=== PATIENT | female | born 1950 | race Caucasian/White ===

== ENCOUNTER → 2020-06-10 12:38 | Outpatient (CLI) | payer MEDICARE, SELFPAY ==
--- NOTE | 2020-06-10 13:01 | XR_ITS ---
PROCEDURE: XR WRIST LT MIN 3V CLINICAL INDICATION: LT WRIST PAIN COMPARISON: No exams were available for comparison FINDINGS: No fracture or dislocation. No lytic or blastic change. There is normal mineralization. The joint spaces are well-preserved. No significant degenerative/arthritic changes. No erosive changes evident. Other findings:None. IMPRESSION: No acute findings. Dictated by: Obed Croft MD 06/10/2020 13:35 Obed Croft MD in [place] 06/10/2020 13:35
[2020-06-10 13:32] LABS: Basophils # 0.1 K/mm3 (0-0.2); Basophils % 1.2 % (0.1-2.0); Eosinophils # 0.1 K/mm3 (0.0-0.4); Eosinophils % 1.6 % (0.1-12.0); Hemoglobin 15.2 g/dL (12.2-16.2); Lymphocytes # 2.1 K/mm3 (0.7-4.5); Lymphocytes % 32.5 % (10-50); Mean Corpuscular HGB Conc 32.2 g/dL (31.8-35.4); Mean Corpuscular Hemoglobin 29.2 pg (27.0-31.2); Mean Corpuscular Volume 90.5 fl (81-99); Mean Platelet Volume 7.4 fl (7.4-10.4); Monocytes # 0.3 K/mm3 (0.1-1.0); Monocytes % 5.1 % (1.7-9.3); Neutrophils # 3.8 K/mm3 (1.8-7.8); Neutrophils % 59.6 % (37.0-80.0); Platelet Count 345 K/mm3 (142-424); Red Cell Distribution Width 14.2 % (11.5-17.5); White Blood Count 6.4 K/mm3 (4.8-10.8)
[2020-06-10 16:03] LABS: Alanine Aminotransferase 20 U/L (12-78); Albumin Level 4.1 g/dl (3.5-5.0); Albumin/Globulin Ratio 1.3 (1.1-1.8); Alkaline Phosphatase 122 U/L (38-126); Anion Gap 12.4 mEq/L (5-15); Aspartate Amino Transferase 28 U/L (14-36); Bilirubin,Total 0.4 mg/dl (0.2-1.3); Blood Urea Nitrogen 18 mg/dl (7-17); Calcium 9.1 mg/dl (8.4-10.2); Carbon Dioxide 26 mmol/L (22.0-30.0); Chloride 106 mmol/L (98-107); Chol/HDL Ratio 4.1 (1-3.5); Cholesterol 224 mg/dl (140-200); Estimated Glomerular Filt Rate 71 ml/min (>60); GFR (African American) 86 ML/MIN (>60); Globulin 3.1 g/dL (1.3-3.2); Glucose 74 mg/dl (74-100); HDL Cholesterol 55 mg/dl (40-60); Potassium 4.4 mmoL/L (3.5-5.1); Sodium 140 mmol/L (136-145); Total Protein,Serum 7.2 g/dl (6.3-8.2); Triglycerides 197 mg/dl (30-150); VLDL Cholesterol 39 mg/dL (0-40)
[2020-06-10 16:14] LABS: Direct LDL Cholesterol 118.18 mg/dL (100-129)
== END ==
PROVIDERS: Visit Provider Internal Medicine Adolescent Medicine
DX: Z00.00 Encounter for general adult medical examination without abnormal findings (principal); M25.532 Pain in left wrist; M12.9 Arthropathy, unspecified; Z86.39 Personal history of other endocrine, nutritional and metabolic disease; E78.00 Pure hypercholesterolemia, unspecified
CPT/HCPCS: 36415; 73110; 80053; 80061; 83036; 85025

== ENCOUNTER → 2020-07-07 15:27 | Outpatient (CLI) | payer MEDICARE, SELFPAY ==
--- NOTE | 2020-07-07 15:30 | MM_ITS ---
PROCEDURE: MM DIG SCREENING MAMM BI W/CAD Digital Breast Tomosynthesis Included CLINICAL INDICATION: SCREENING There is no personal or family history of breast cancer. COMPARISON: MG MM SCREENING MAMMOGRAM from 04/10/2016 TECHNIQUE: Standard CC and MLO images and 3D Tomosynthesis was obtained. R2 CAD reviewed. FINDINGS: Moderate scattered fibroglandular densities are seen throughout both breasts. There are mole markers on each breast. There is a stable benign-appearing nodular density in each breast. There is a benign-appearing microcalcification left breast. There is no suspicious lesion and no suspicious microcalcifications. IMPRESSION: Moderate breast density with no suspicious lesions seen BI-RAD Category: 2 Benign Finding(s) FOLLOW-UP: 1YR 1 Year Follow-up (A letter has been sent to the patient regarding results of the study.) Dictated by: Dr. Viktor Russo MD 07/30/2020 17:03 Dr. Viktor Russo MD in [place] 07/30/2020 17:03
== END ==
PROVIDERS: PCP Internal Medicine Adolescent Medicine; Visit Provider Internal Medicine Adolescent Medicine
DX: Z12.31 Encounter for screening mammogram for malignant neoplasm of breast (principal)
CPT/HCPCS: 77063; 77067

== ENCOUNTER → 2020-08-09 10:56 | Outpatient (CLI) | payer MEDICARE, SELFPAY ==
[2020-08-09 13:05] LABS: 25-OH Vitamin D, Total 20.6 ng/mL (30-100); Free Thyroxine Index 2.2 ug/dL (5.93-13.13); T4 (Thyroxine) 6.6 ug/dl (5.53-11.0); Triiodothryronine (T3) Uptake 33 % (23.5-40.5)
[2020-08-09 13:18] LABS: Thyroid Stimulating Hormone 3.83 uIU/mL (0.465-4.68)
[2020-08-09 13:39] LABS: Vitamin B12 338 pg/mL (239-931)
== END ==
PROVIDERS: Visit Provider Internal Medicine Adolescent Medicine
DX: G25.81 Restless legs syndrome (principal); E55.9 Vitamin D deficiency, unspecified; Z86.39 Personal history of other endocrine, nutritional and metabolic disease
CPT/HCPCS: 36415; 82306; 82607; 82728; 83735; 84436; 84443; 84479

== ENCOUNTER 2020-09-13 12:50 | Outpatient (CLI) | payer MEDICARE, SELFPAY ==
[2020-09-13 13:08] VITALS: BP 154/88; PULSE 70; RESP 18; TEMP 36.7; O2SAT 99
[2020-09-13 14:05] VITALS: BP 140/85; PULSE 72; RESP 18; O2SAT 99
== END 2020-09-13 14:05 | disposition home or self-care (01) ==
LOC: INF 12:54
PROVIDERS: PCP Internal Medicine Adolescent Medicine; Visit Provider Nurse Practitioner Family
DX: N39.0 Urinary tract infection, site not specified (principal)
CPT/HCPCS: 96365; J1335

== ENCOUNTER 2020-09-14 12:55 | Outpatient (CLI) | payer MEDICARE, SELFPAY ==
[2020-09-14 13:15] VITALS: BP 125/70; PULSE 73; RESP 18; TEMP 36.6; O2SAT 99
[2020-09-14 13:50] VITALS: BP 128/74; PULSE 71; RESP 18; TEMP 36.6; O2SAT 99
== END 2020-09-14 13:55 | disposition home or self-care (01) ==
LOC: INF 12:55
PROVIDERS: Visit Provider Nurse Practitioner Family
DX: N39.0 Urinary tract infection, site not specified (principal)
CPT/HCPCS: 96365; J1335

== ENCOUNTER 2020-09-15 13:06 | Outpatient (CLI) | payer MEDICARE, SELFPAY ==
[2020-09-15 13:16] VITALS: BP 143/89; PULSE 77; RESP 18; TEMP 36.4; O2SAT 96
[2020-09-15 13:46] VITALS: BP 141/81; PULSE 72; RESP 18; O2SAT 97
[2020-09-15 14:16] VITALS: BP 132/71; PULSE 80; RESP 18; O2SAT 97
== END 2020-09-15 14:20 | disposition home or self-care (01) ==
LOC: INF 13:06
PROVIDERS: Visit Provider Nurse Practitioner Family
DX: N39.0 Urinary tract infection, site not specified (principal)
CPT/HCPCS: 96365; J1335

== ENCOUNTER 2020-09-16 12:55 | Outpatient (CLI) | payer MEDICARE, SELFPAY ==
[2020-09-16 13:35] VITALS: BP 137/79; PULSE 80; RESP 18; TEMP 36.3; O2SAT 94
[2020-09-16 14:20] VITALS: BP 127/71; PULSE 69; RESP 16
== END 2020-09-16 14:35 | disposition home or self-care (01) ==
LOC: INF 13:01
PROVIDERS: Visit Provider Nurse Practitioner Family
DX: N39.0 Urinary tract infection, site not specified (principal)
CPT/HCPCS: 96365; J1335

== ENCOUNTER 2020-09-17 12:55 | Outpatient (CLI) | payer MEDICARE, SELFPAY ==
[2020-09-17 13:05] VITALS: BP 128/82; PULSE 84; RESP 18; TEMP 36.5; O2SAT 97
[2020-09-17 13:45] VITALS: BP 130/78; PULSE 78; RESP 18; TEMP 36.6; O2SAT 98
== END 2020-09-17 13:45 | disposition home or self-care (01) ==
LOC: INF 12:55
PROVIDERS: Visit Provider Nurse Practitioner Family
DX: N39.0 Urinary tract infection, site not specified (principal)
CPT/HCPCS: 96365; J1335

== ENCOUNTER → 2020-09-18 12:59 | Outpatient (CLI) | payer MEDICARE, SELFPAY ==
[2020-09-18 13:22] VITALS: BP 121/67; PULSE 73; RESP 16; TEMP 36.1; O2SAT 97
[2020-09-18 14:30] VITALS: BP 120/66; PULSE 78; RESP 16; TEMP 36.9; O2SAT 98
[2020-09-18 14:50] VITALS: BP 119/65; PULSE 76; RESP 16; TEMP 36.8; O2SAT 98
[2020-09-18 14:55] VITALS: BP 119/65; PULSE 76; RESP 16; TEMP 36.8; O2SAT 98
== END ==
PROVIDERS: PCP Internal Medicine Adolescent Medicine; Visit Provider Nurse Practitioner Family
DX: N39.0 Urinary tract infection, site not specified (principal)
CPT/HCPCS: 96365; J1335

== ENCOUNTER → 2020-09-19 12:54 | Outpatient (CLI) | payer MEDICARE, SELFPAY ==
[2020-09-19 12:54] VITALS: BP 124/83; PULSE 78; RESP 16; TEMP 36.1; O2SAT 98
[2020-09-19 14:28] VITALS: BP 128/82; PULSE 77; RESP 18; TEMP 36.3; O2SAT 98
== END ==
PROVIDERS: PCP Nurse Practitioner Family; Visit Provider Nurse Practitioner Family
DX: N39.0 Urinary tract infection, site not specified (principal)
CPT/HCPCS: 96365

== ENCOUNTER → 2021-06-01 11:41 | Outpatient (CLI) | payer MEDICARE, SELFPAY ==
[2021-06-01 12:37] LABS: Basophils # 0.1 K/mm3 (0-0.2); Eosinophils # 0.1 K/mm3 (0.0-0.4); Eosinophils % 1.8 % (0.1-12.0); Hematocrit 45.1 % (37.0-47.0); Hemoglobin 15.1 g/dL (12.2-16.2); Lymphocytes # 2.6 K/mm3 (0.7-4.5); Lymphocytes % 40.3 % (10-50); Mean Corpuscular HGB Conc 33.5 g/dL (31.8-35.4); Mean Corpuscular Hemoglobin 29.3 pg (27.0-31.2); Mean Corpuscular Volume 87.5 fl (81-99); Mean Platelet Volume 7.9 fl (7.4-10.4); Monocytes # 0.3 K/mm3 (0.1-1.0); Monocytes % 4.2 % (1.7-9.3); Neutrophils # 3.3 K/mm3 (1.8-7.8); Neutrophils % 51.7 % (37.0-80.0); Platelet Count 326 K/mm3 (142-424); Red Blood Count 5.15 M/mm3 (4.20-5.40); Red Cell Distribution Width 14.6 % (11.5-17.5); White Blood Count 6.5 K/mm3 (4.8-10.8)
[2021-06-01 13:21] LABS: Hemoglobin A1C 4.9 % (4.0-6.0)
[2021-06-01 14:00] LABS: 25-OH Vitamin D, Total 21.6 ng/mL (30-100)
[2021-06-01 15:21] LABS: Alanine Aminotransferase 23 U/L (12-78); Albumin Level 3.9 g/dl (3.5-5.0); Albumin/Globulin Ratio 1.4 (1.1-1.8); Alkaline Phosphatase 95 U/L (38-126); Anion Gap 12.8 mEq/L (5-15); Aspartate Amino Transferase 29 U/L (14-36); Bilirubin,Total 0.4 mg/dl (0.2-1.3); Blood Urea Nitrogen 13 mg/dl (7-17); Calcium 8.8 mg/dl (8.4-10.2); Carbon Dioxide 18 mmol/L (22.0-30.0); Chloride 114 mmol/L (98-107); Estimated Glomerular Filt Rate 71 ml/min (>60); GFR (African American) 86 ML/MIN (>60); Globulin 2.8 g/dL (1.3-3.2); Glucose 115 mg/dl (74-100); Potassium 3.8 mmoL/L (3.5-5.1); Sodium 141 mmol/L (136-145); Total Protein,Serum 6.7 g/dl (6.3-8.2)
[2021-06-01 15:52] LABS: Thyroid Stimulating Hormone 2.33 uIU/mL (0.465-4.68)
[2021-06-01 16:10] LABS: Vitamin B12 302 pg/mL (239-931)
== END ==
PROVIDERS: Visit Provider Internal Medicine Adolescent Medicine
DX: R53.81 Other malaise (principal); R53.83 Other fatigue; E55.9 Vitamin D deficiency, unspecified; Z86.39 Personal history of other endocrine, nutritional and metabolic disease
CPT/HCPCS: 36415; 80053; 82306; 82607; 83036; 84443; 85025

== ENCOUNTER 2021-07-14 15:17 | Emergency (ER) | payer MEDICARE, SELFPAY ==
[2021-07-14] VITALS (9 sets, daily range): BP systolic 112–161; BP diastolic 70–97; PULSE 68–79; RESP 13–18; TEMP 36.7–36.8; O2SAT 96–99; BMI 34.0
--- NOTE | 2021-07-14 15:17 | ECG_ITS ---
APPROVED REPORT Exam: Resting ECG HR:79 bpm ECG Measurements Heart Rate 79 AXES MN 126 P -17 QRSd 78 QRS -34 QT 390 T 71 QTc 447 Conclusion Normal sinus rhythm Left axis deviation Low voltage QRS Abnormal ECG Electronically signed by : Johnny Gomez MD 07/15/2021 12:36:25
--- NOTE | 2021-07-14 15:34 | XR_ITS ---
PROCEDURE INFORMATION: Exam: XR Chest Exam date and time: 07/14/2021 3:34 PM Age: 71 years old Clinical indication: Pain; Chest pressure; Additional info: Chest pain TECHNIQUE: Imaging protocol: XR of the chest. Views: 2 views. COMPARISON: No relevant prior studies available. FINDINGS: Lungs: No lobar consolidation, effusion or edema. Pleural spaces: Unremarkable. No pleural effusion. No pneumothorax. Heart/Mediastinum: Unremarkable. No cardiomegaly. Bones/joints: Unremarkable. IMPRESSION: No lobar consolidation, effusion or edema. Plain films are relatively insensitive for detecting any possible ground glass opacities.
[2021-07-14 15:51] LABS: Basophils # 0.1 K/mm3 (0-0.2); Basophils % 1.8 % (0.1-2.0); Eosinophils # 0.1 K/mm3 (0.0-0.4); Eosinophils % 1.8 % (0.1-12.0); Hematocrit 44.6 % (37.0-47.0); Hemoglobin 14.7 g/dL (12.2-16.2); Lymphocytes # 2.5 K/mm3 (0.7-4.5); Lymphocytes % 46.8 % (10-50); Mean Corpuscular Hemoglobin 29.5 pg (27.0-31.2); Mean Corpuscular Volume 89.4 fl (81-99); Mean Platelet Volume 8.4 fl (7.4-10.4); Monocytes # 0.3 K/mm3 (0.1-1.0); Monocytes % 4.7 % (1.7-9.3); Neutrophils # 2.4 K/mm3 (1.8-7.8); Neutrophils % 44.8 % (37.0-80.0); Platelet Count 297 K/mm3 (142-424); Red Blood Count 4.98 M/mm3 (4.20-5.40); Red Cell Distribution Width 14.3 % (11.5-17.5); White Blood Count 5.3 K/mm3 (4.8-10.8)
--- NOTE | 2021-07-14 15:56 | HMH.EDGENADL ---
ED Disposition Clinical Impression: Atypical chest pain Disposition: Home, Self-Care Condition on Discharge: Good Instructions: DI for Atypical Chest Pain Additional Instructions: Additional instructions for CHEST PAIN: See your physician as soon as possible for further evaluation. Return immediately if worsening chest pain, vomiting, shortness of breath, fever, coughing of blood. Referrals: Johnny Gomez MD [Primary Care Provider] - - Critical Care Critical Care Time: No Attestation: On 07/14/21, the high probability of a clinically significant, sudden or life threatening deterioration of the following system(s) required my full and direct attention, intervention and personal management. The time I documented below is in addition to time spent performing reported procedures but includes the following listed in this critical care notation. Medical Decision Making - Willem Inquiry Pt receiving controlled substance: No Vital Signs: 07/14/21 15:20 07/14/21 15:30 07/14/21 16:00 Temperature 98.1 F Temperature Source Oral Pulse Rate 79 74 Pulse Rate [Left Radial] 79 Respiratory Rate 18 17 16 Blood Pressure 136/85 137/85 Blood Pressure [Right Arm] 143/93 H Blood Pressure Mean 102 99 Blood Pressure Mean [Right Arm] 109 Blood Pressure Source [Right Arm] Automatic Cuff Blood Pressure Position [Right Arm] Sitting 02 Sat by Pulse Oximetry 98 97 97 Oxygen Delivery Method Room Air 07/14/21 16:30 07/14/21 17:00 07/14/21 17:30 Temperature Temperature Source Pulse Rate 69 72 68 Pulse Rate [Left Radial] Respiratory Rate 13 14 16 Blood Pressure 154/96 H 151/96 H 161/97 H Blood Pressure [Right Arm] Blood Pressure Mean 113 108 115 Blood Pressure Mean [Right Arm] Blood Pressure Source [Right Arm] Blood Pressure Position [Right Arm] 02 Sat by Pulse Oximetry 97 96 96 Oxygen Delivery Method 07/14/21 18:00 07/14/21 18:30 Temperature Temperature Source Pulse Rate 71 70 Pulse Rate [Left Radial] Respiratory Rate 15 13 Blood Pressure 149/93 H 151/90 H Blood Pressure [Right Arm] Blood Pressure Mean 111 110 Blood Pressure Mean [Right Arm] Blood Pressure Source [Right Arm] Blood Pressure Position [Right Arm] 02 Sat by Pulse Oximetry 97 96 Oxygen Delivery Method - Lab Data Lab Results 07/14/21 15:25: WBC 5.3, RBC 4.98, Hgb 14.7, Hct 44.6, MCV 89.4, MCH 29.5, MCHC 33.0, RDW 14.3, Plt Count 297, MPV 8.4, Neut % (Auto) 44.8, Lymph % (Auto) 46.8, Lucas % (Auto) 4.7, Eos % (Auto) 1.8, Baso % (Auto) 1.8, Neut # (Auto) 2.4, Lymph # (Auto) 2.5, Lucas # (Auto) 0.3, Eos # (Auto) 0.1, Baso # (Auto) 0.1 07/14/21 15:25: Sodium 137, Potassium 3.6, Chloride 105, Carbon Dioxide 27, Anion Gap 8.6, BUN 14, Creatinine 0.80, Estimated Creat Clear 87, Estimated GFR 71, Est GFR ( Amer) 86, Glucose 88, Calcium 8.7, Troponin I < 0.01 07/14/21 18:40: Troponin I < 0.01 Result diagrams: 07/14/21 15:25 07/14/21 15:25 Orders (Tests/Meds): ED MEDICATIONS Discontinued Medications Generic Name Dose Route Start Last Admin Trade Name Freq PRN Reason Stop Dose Admin Aspirin 324 mg 07/14/21 15:34 07/14/21 15:38 Aspirin 81mg Chewable Tablet PO 07/14/21 15:35 324 mg ONCE ONE Administration ORDERS Category Date Time Status Troponin I Q3H Lab 07/14/21 21:45 Ordered - Radiology Data #1 Image(s): Chest Image Reviewed: Yes I have reviewed radiologist's interpretation PROCEDURE INFORMATION: Exam: XR Chest Exam date and time: 07/14/2021 3:34 PM Age: 71 years old Clinical indication: Pain; Chest pressure; Additional info: Chest pain TECHNIQUE: Imaging protocol: XR of the chest. Views: 2 views. COMPARISON: No relevant prior studies available. FINDINGS: Lungs: No lobar consolidation, effusion or edema. Pleural spaces: Unremarkable. No pleural effusion. No pneumothorax. Heart/Mediastinum: Unremarkable. No cardiomegaly.
[2021-07-14 16:26] LABS: Anion Gap 8.6 mEq/L (5-15); Blood Urea Nitrogen 14 mg/dl (7-17); Calcium 8.7 mg/dl (8.4-10.2); Carbon Dioxide 27 mmol/L (22.0-30.0); Chloride 105 mmol/L (98-107); Creatinine Clearance Estimated 87 mL/min (50-200); Estimated Glomerular Filt Rate 71 ml/min (>60); GFR (African American) 86 ML/MIN (>60); Glucose 88 mg/dl (74-100); Potassium 3.6 mmoL/L (3.5-5.1); Sodium 137 mmol/L (136-145)
--- NOTE | 2021-07-14 16:34 | PC.NURSE ---
updated family about pt status
[2021-07-14 16:44] LABS: Troponin I < 0.01 ng/ml (0.00-0.034)
[2021-07-14 19:30] LABS: Troponin I < 0.01 ng/ml (0.00-0.034)
== END 2021-07-14 19:54 | disposition home or self-care (01) ==
PROVIDERS: Emergency Provider Emergency Medicine; PCP Internal Medicine Adolescent Medicine
DX: R07.89 Other chest pain (principal); E11.9 Type 2 diabetes mellitus without complications; I10 Essential (primary) hypertension; Z88.0 Allergy status to penicillin; Z88.2 Allergy status to sulfonamides; E78.5 Hyperlipidemia, unspecified
CPT/HCPCS: 71046; 80048; 84484; 85025; 93005; 99283

== ENCOUNTER → 2021-07-26 15:47 | Outpatient (CLI) | payer MEDICARE, SELFPAY | PROVIDERS: PCP Radiology Diagnostic Radiology; Visit Provider Nurse Practitioner | DX: Z20.822 Contact with and (suspected) exposure to COVID-19 (principal) | CPT/HCPCS: C9803; U0003; U0005 ==

== ENCOUNTER → 2021-07-27 15:38 | Outpatient (CLI) | payer MEDICARE, SELFPAY ==
--- NOTE | 2021-07-27 | US_ITS ---
PROCEDURE INFORMATION: Exam: US Right Breast, Complete MG Bilateral Diagnostic Breast Tomosynthesis Exam date and time: 07/27/2021 3:43 PM Age: 71 years old Clinical indication: Palpable abnormality right breast TECHNIQUE: Imaging protocol: Complete ultrasound of all four quadrants of the Right breast and the retroareolar regions, including ultrasound of the axilla when performed. Bilateral Diagnostic tomosynthesis and 2D mammography including computer-aided detection (CAD) when performed. Unilateral or bilateral exam. COMPARISON: 1. MG MM DIG SCREENING MAMM BI W/CAD 07/07/2020 3:36 PM 2. MG MM SCREENING MAMMOGRAM 04/10/2016 10:12 AM FINDINGS: MAMMOGRAPHY: The breast tissue is composed of scattered areas of fibroglandular density. A skin marker was placed over the palpable abnormality in the right 12 o'clock axis. Routine and spot compression views demonstrate a stellate mass measuring 3.5 x 3.4 cm in dimension. There is associated architectural distortion present. No suspicious microcalcifications. No suspicious findings in the left breast. architectural distortion or suspicious microcalcifications in either breast to suggest malignancy. No skin thickening . There is a 1 lymph node in the right axilla that is round in shape measuring 1.1 cm without a clear fatty hilum identified. ULTRASOUND: Sonographic images of the right breast including the retroareolar region, all 4 quadrants and the axilla demonstrates a stellate hypoechoic solid mass corresponding to the palpable mass on mammography. It is located in the middle third of the right 12 o'clock axis and is slightly under measured on sonography. On sonography it measures 2.4 x 2.0 by 2.3 cm in dimension. No other solid or cystic masses are noted in the right breast. Evaluation the right axilla demonstrates several fat containing benign-appearing axillary lymph nodes. IMPRESSION: Palpable abnormality in the right breast corresponds to a stellate mass highly suggestive of primary breast malignancy. Ultrasound-guided core biopsy is recommended for further evaluation. Repeat sonography of the right axilla is also recommended at the time of biopsy to assess for any potential adenopathy. ASSESSMENT: BI-RADS Category 5: Highly suggestive of malignancy
== END ==
PROVIDERS: PCP Internal Medicine Adolescent Medicine; Visit Provider Internal Medicine Adolescent Medicine
DX: R92.8 Other abnormal and inconclusive findings on diagnostic imaging of breast (principal); N63.10 Unspecified lump in the right breast, unspecified quadrant
CPT/HCPCS: 76641; 77062; 77066; G0279

== ENCOUNTER → 2021-08-09 09:13 | Outpatient (CLI) | payer MEDICARE, SELFPAY ==
--- NOTE | 2021-08-09 | MM_ITS ---
FINAL REPORT CLINICAL HISTORY: . s/p bx, clip placement FINDINGS: MAMMOGRAM RIGHT History: Right breast biopsy. Right breast mass. TECHNIQUE: Standard digital 2-D views with 3-D tomosynthesis COMPARISON: 07-27-21 DENSITY: There are scattered areas of fibroglandular density FINDINGS: Dominant mass is again noted in the right breast at approximately 11-12:00. There has been interval biopsy of the mass with a biopsy marker clip noted within the central portion of the mass reflecting adequate sampling. No new abnormalities seen. There is no significant hemorrhage. IMPRESSION: Post biopsy mammogram performed documenting biopsy clip within the central portion of the mass RECOMMENDATION: Pending histopathology results Authenticated by Naveed Caballero MD on 08/11/2021 02:26:01 PM [facility]
--- NOTE | 2021-08-09 09:31 | US_ITS ---
FINAL REPORT CLINICAL HISTORY: RT BREAST MASS. Request for right breast biopsy and right x-ray lymph node sampling. FINDINGS: ULTRASOUND-GUIDED RIGHT BREAST MASS BIOPSY TECHNIQUE: Limited images were obtained to localize region of interest. The upper outer quadrant was prepped in a routine sterile fashion and locally anesthetized with 1% lidocaine. The needle was positioned within the outer periphery of the lesion. A total of 4 passes were made with a 14 gauge core biopsy needle. Biopsy marker clip was deployed within the lesion. Mammogram was obtained the dictated under separate report. Procedure was well tolerated . CONCLUSION: 1. Technically successful ultrasound guided core biopsy of right breast mass as above. 2. Biopsy marker clip deployed within lesion 3. Post biopsy mammogram obtained dictated under separate report 4. FNA of right axillary lymph nodes performed dictated under separate report ULTRASOUND-GUIDED RIGHT AXILLARY LYMPH NODE BIOPSY/FNA TECHNIQUE: Limited images were obtained to localize region of interest. No enlarged lymph nodes were identified. The largest lymph node was targeted for FNA. Lymph node was not amenable to core biopsy. The lymph node measured 10 x 5 mm. The was prepped in a routine sterile fashion and locally anesthetized with 1% lidocaine. The needle was positioned within the outer periphery of the lesion. A total of 3 passes were made with a 25 gauge core biopsy needle. Procedure was well tolerated . CONCLUSION: 1. Technically successful ultrasound guided FNA of right axillary lymph node as above. Authenticated by Naveed Caballero MD on 08/11/2021 02:21:10 PM [facility]
== END ==
PROVIDERS: PCP Internal Medicine Adolescent Medicine; Visit Provider Surgery
DX: R92.8 Other abnormal and inconclusive findings on diagnostic imaging of breast (principal); N63.10 Unspecified lump in the right breast, unspecified quadrant
CPT/HCPCS: 10005; 19083; 77065; 88173; 88305; 88360

== ENCOUNTER → 2021-09-12 13:48 | Outpatient (CLI) | payer MEDICARE, SELFPAY ==
--- NOTE | 2021-09-12 | CA_ITS ---
APPROVED REPORT EXAM: Comprehensive 2D, Doppler, and color-flow Echocardiogram City Comptroller: Beatrice Garcia CRT Ht: 5 ft 9 in Wt: 230lbs BSA: 2.19 BP: 142/86 mmHg Indications: PRE-CHEMO, BREAST CA, TDE POOR U/S WINDOWS 2D Dimensions LVOT 2.28 cm (M/F) 1.5-2.5 LA Volume 25.50 mL LA Volume Index 11.60 mL/m2 (M/F) 16-34 M-Mode Dimensions LA Diam 2.65 cm (1.9-4.0) Ao Diam 4.39 cm (2.0-3.7) TAPSE 2.33 (<1.7) LV Diastology E Decel Time 110.00 (160-240 msec) E/A Ratio 0.52 MED E' 6.50 (< 7 cm/sec) MED A' 9.40 cm/s E'/MED E' Ratio 7.17 (>14) LAT E' 4.90 (<10 cm/sec) LAT A' 9.70 cm/s E/LAT E' Ratio 9.51 (>14) Aortic Valve AO Peak GR. 5.60 mmHg Mitral Valve MV A Velocity 89.00 (40-130 cm/s) E/A Ratio 0.52 MV Decel. Time 110.00 (160-240 ms) Tricuspid Valve TR P. Velocity 153.00 cm/s Left Ventricle Left atrium is mildly enlarged, left ventricle is normal size, mild concentric left ventricular hypertrophy, visually estimated ejection fraction 55% with no obvious regional wall motion abnormality, diastolic parameters are within normal range. Right Ventricle Right atrium and right ventricle are normal size and contractility. Aortic Valve Aortic valve is minimally thickened and fibrosed, there is no aortic stenosis or aortic insufficiency. Mitral Valve Mitral valve is grossly normal, there is trace mitral regurgitation. Tricuspid Valve Tricuspid valve grossly normal, there is trace tricuspid regurgitation, tricuspid regurgitation jet velocity is inadequate for calculation of the right ventricular systolic pressure. Pulmonic Valve Pulmonic valve is poorly visualized. Great Vessels Aortic root is normal size. Inferior vena cava is normal size with normal inspiratory collapse. Pericardium No significant pericardial effusion noted. Conclusion 1. Mildly enlarged left atrium, normal left ventricular size, mild concentric left ventricular hypertrophy, visually estimated ejection fraction 55% with no obvious regional wall motion abnormality, grade 1 diastolic dysfunction seen without tissue Doppler evidence of raise left atrial pressure. 2. Trace mitral and tricuspid regurgitation. 3. No significant pericardial effusion noted. 4. Inferior vena cava is normal size with normal inspiratory collapse. Electronically signed by : Iván Nayak MD 09/12/2021 20:39:02
== END ==
PROVIDERS: PCP Internal Medicine Adolescent Medicine; Visit Provider Internal Medicine Medical Oncology
DX: C50.911 Malignant neoplasm of unspecified site of right female breast (principal); R07.89 Other chest pain
CPT/HCPCS: 93306

== ENCOUNTER 2021-09-15 09:01 | Outpatient (CLI) | payer MEDICARE, SELFPAY ==
[2021-09-15] VITALS (18 sets, daily range): BP systolic 120–156; BP diastolic 66–85; PULSE 67–86; RESP 18; O2SAT 96; BMI 34.0
[2021-09-15 09:40] LABS: Basophils # 0.1 K/mm3 (0-0.2); Basophils % 1.1 % (0.1-2.0); Eosinophils # 0.1 K/mm3 (0.0-0.4); Eosinophils % 2.4 % (0.1-12.0); Hematocrit 39.9 % (37.0-47.0); Hemoglobin 13.4 g/dL (12.2-16.2); Lymphocytes # 2.1 K/mm3 (0.7-4.5); Lymphocytes % 36.8 % (10-50); Mean Corpuscular HGB Conc 33.7 g/dL (31.8-35.4); Mean Corpuscular Hemoglobin 29.5 pg (27.0-31.2); Mean Corpuscular Volume 87.5 fl (81-99); Mean Platelet Volume 7.2 fl (7.4-10.4); Monocytes # 0.3 K/mm3 (0.1-1.0); Monocytes % 6.2 % (1.7-9.3); Neutrophils % 53.7 % (37.0-80.0); Platelet Count 266 K/mm3 (142-424); Red Blood Count 4.56 M/mm3 (4.20-5.40); Red Cell Distribution Width 14.2 % (11.5-17.5); White Blood Count 5.6 K/mm3 (4.8-10.8)
[2021-09-15 09:42] LABS: Chloride 107 mmol/L (98-107); Potassium 3.4 mmoL/L (3.5-5.1); Sodium 136 mmol/L (136-145)
[2021-09-15 09:44] LABS: Alanine Aminotransferase 26 U/L (12-78); Alkaline Phosphatase 126 U/L (38-126); Anion Gap 7.4 mEq/L (5-15); Aspartate Amino Transferase 40 U/L (14-36); Bilirubin,Total 0.5 mg/dl (0.2-1.3); Blood Urea Nitrogen 15 mg/dl (7-17); Carbon Dioxide 25 mmol/L (22.0-30.0); Creatinine Clearance Estimated 87 mL/min (50-200); Estimated Glomerular Filt Rate 83 ml/min (>60); GFR (African American) 100 ML/MIN (>60)
[2021-09-15 09:45] LABS: Albumin Level 3.5 g/dl (3.5-5.0); Albumin/Globulin Ratio 1.2 (1.1-1.8); Calcium 7.4 mg/dl (8.4-10.2); Glucose 107 mg/dl (74-100); Total Protein,Serum 6.5 g/dl (6.3-8.2)
[2021-09-15 10:15] LABS: Thyroid Stimulating Hormone 2.81 uIU/mL (0.465-4.68)
[2021-09-16 14:13] LABS: Adrenocorticotropic Hormone 16.9 pg/mL (7.2-63.3)
--- NOTE | 2021-09-21 10:46 | DIET.NUTRFU ---
Spoke to patient about chemo tx and how she is feeling. Just had 1 tx so far and still feeling good and eating good. She has desired weight loss, but discouraged against it at this time. She asked about different things she may experience, we talked about taste changes and nausea and some foods to keep on hand. She has bought some glucerna already just in case. Encouraged her to use in place of meal if cannot eat, she has hx of hypoglycemia and should not skip meals. provided contact information for any further questions or concerns
== END 2021-09-15 15:51 | disposition home or self-care (01) ==
LOC: INF 09:02
PROVIDERS: PCP Internal Medicine Adolescent Medicine; Visit Provider Internal Medicine Medical Oncology
DX: Z51.11 Encounter for antineoplastic chemotherapy (principal); C50.911 Malignant neoplasm of unspecified site of right female breast; Z79.899 Other long term (current) drug therapy
CPT/HCPCS: 80053; 82024; 82533; 84443; 85025; 96413; 96415; 96417; J1642; J2469; J7060; J8501; J9045; J9267; J9271

== ENCOUNTER 2021-09-22 07:51 | Outpatient (CLI) | payer MEDICARE, SELFPAY ==
[2021-09-22] VITALS (12 sets, daily range): BP systolic 127–141; BP diastolic 74–87; PULSE 77–87; RESP 18; TEMP 36.6; O2SAT 96; BMI 34.0
[2021-09-22 09:34] LABS: Basophils # 0.1 K/mm3 (0-0.2); Eosinophils # 0.2 K/mm3 (0.0-0.4); Eosinophils % 3.5 % (0.1-12.0); Hemoglobin 13.5 g/dL (12.2-16.2); Lymphocytes # 1.9 K/mm3 (0.7-4.5); Lymphocytes % 37.2 % (10-50); Mean Corpuscular HGB Conc 32.2 g/dL (31.8-35.4); Mean Corpuscular Hemoglobin 29.4 pg (27.0-31.2); Mean Corpuscular Volume 91.2 fl (81-99); Monocytes # 0.1 K/mm3 (0.1-1.0); Monocytes % 2.1 % (1.7-9.3); Neutrophils # 2.8 K/mm3 (1.8-7.8); Neutrophils % 55.3 % (37.0-80.0); Platelet Count 298 K/mm3 (142-424); Red Blood Count 4.61 M/mm3 (4.20-5.40); Red Cell Distribution Width 14.3 % (11.5-17.5); White Blood Count 5.1 K/mm3 (4.8-10.8)
[2021-09-22 09:39] LABS: Alanine Aminotransferase 30 U/L (12-78); Albumin Level 3.5 g/dl (3.5-5.0); Albumin/Globulin Ratio 1.3 (1.1-1.8); Alkaline Phosphatase 98 U/L (38-126); Anion Gap 6.9 mEq/L (5-15); Aspartate Amino Transferase 32 U/L (14-36); Bilirubin,Total 0.4 mg/dl (0.2-1.3); Blood Urea Nitrogen 14 mg/dl (7-17); Calcium 7.9 mg/dl (8.4-10.2); Carbon Dioxide 28 mmol/L (22.0-30.0); Chloride 106 mmol/L (98-107); Creatinine Clearance Estimated 87 mL/min (50-200); Estimated Glomerular Filt Rate 71 ml/min (>60); GFR (African American) 86 ML/MIN (>60); Globulin 2.8 g/dL (1.3-3.2); Glucose 98 mg/dl (74-100); Potassium 3.9 mmoL/L (3.5-5.1); Sodium 137 mmol/L (136-145); Total Protein,Serum 6.3 g/dl (6.3-8.2)
== END 2021-09-22 14:35 | disposition home or self-care (01) ==
LOC: INF 07:52
PROVIDERS: Visit Provider Internal Medicine Medical Oncology
DX: Z51.11 Encounter for antineoplastic chemotherapy (principal); C50.911 Malignant neoplasm of unspecified site of right female breast
CPT/HCPCS: 80053; 85025; 96413; 96415; J2405; J7060; J9267

== ENCOUNTER 2021-09-29 08:08 | Outpatient (CLI) | payer MEDICARE, SELFPAY ==
[2021-09-29] VITALS (13 sets, daily range): BP systolic 105–128; BP diastolic 64–74; PULSE 74–87; RESP 16; TEMP 35.9; O2SAT 97; BMI 34.0
[2021-09-29 09:27] LABS: Basophils % 1.3 % (0.1-2.0); Chloride 109 mmol/L (98-107); Eosinophils # 0.1 K/mm3 (0.0-0.4); Eosinophils % 3.7 % (0.1-12.0); Hematocrit 38.4 % (37.0-47.0); Hemoglobin 12.6 g/dL (12.2-16.2); Lymphocytes # 1.9 K/mm3 (0.7-4.5); Lymphocytes % 58.1 % (10-50); Mean Corpuscular HGB Conc 32.9 g/dL (31.8-35.4); Mean Corpuscular Hemoglobin 29.5 pg (27.0-31.2); Mean Corpuscular Volume 89.6 fl (81-99); Mean Platelet Volume 7.9 fl (7.4-10.4); Monocytes # 0.1 K/mm3 (0.1-1.0); Monocytes % 3.5 % (1.7-9.3); Neutrophils # 1.1 K/mm3 (1.8-7.8); Neutrophils % 33.4 % (37.0-80.0); Platelet Count 302 K/mm3 (142-424); Potassium 3.7 mmoL/L (3.5-5.1); Red Blood Count 4.28 M/mm3 (4.20-5.40); Red Cell Distribution Width 14.5 % (11.5-17.5); Sodium 136 mmol/L (136-145); White Blood Count 3.3 K/mm3 (4.8-10.8)
[2021-09-29 09:29] LABS: Blood Urea Nitrogen 17 mg/dl (7-17); Creatinine Clearance Estimated 87 mL/min (50-200); Estimated Glomerular Filt Rate 62 ml/min (>60); GFR (African American) 75 ML/MIN (>60); MANUAL DIFFERENTIAL MANUAL DIFFERENTIAL (MANUAL DIFF)
[2021-09-29 09:30] LABS: Alanine Aminotransferase 44 U/L (12-78); Albumin Level 3.4 g/dl (3.5-5.0); Albumin/Globulin Ratio 1.2 (1.1-1.8); Alkaline Phosphatase 109 U/L (38-126); Anion Gap 9.7 mEq/L (5-15); Aspartate Amino Transferase 32 U/L (14-36); Bilirubin,Total 0.5 mg/dl (0.2-1.3); Calcium 7.7 mg/dl (8.4-10.2); Carbon Dioxide 21 mmol/L (22.0-30.0); Globulin 2.8 g/dL (1.3-3.2); Glucose 102 mg/dl (74-100); Total Protein,Serum 6.2 g/dl (6.3-8.2)
[2021-09-29 11:08] LABS: Eosinophils % 2 % (0-3); Lymphocytes % 56 % (10-50); Monocytes % 4 % (2-9); Neutrophils % 38 % (42-76); Total Cells Counted 50
[2021-09-29 11:09] LABS: Platelet Estimate Normal; RBC Morphology Normal
== END 2021-09-29 14:20 | disposition home or self-care (01) ==
LOC: INF 08:08
PROVIDERS: Visit Provider Internal Medicine Medical Oncology
DX: Z51.11 Encounter for antineoplastic chemotherapy (principal); C50.911 Malignant neoplasm of unspecified site of right female breast
CPT/HCPCS: 80053; 85007; 85025; 96413; 96415; J1642; J2405; J7060; J9267

== ENCOUNTER 2021-09-30 08:22 | Outpatient (CLI) | payer MEDICARE, SELFPAY ==
[2021-09-30 13:55] VITALS: BP 116/72; PULSE 93; RESP 18; O2SAT 100
== END 2021-09-30 13:55 | disposition home or self-care (01) ==
LOC: INF 08:22
PROVIDERS: Visit Provider Internal Medicine Medical Oncology
DX: Z51.11 Encounter for antineoplastic chemotherapy (principal); C50.911 Malignant neoplasm of unspecified site of right female breast
CPT/HCPCS: 96372; J2505

== ENCOUNTER 2021-10-07 09:01 | Outpatient (CLI) | payer MEDICARE, SELFPAY ==
[2021-10-07] VITALS (18 sets, daily range): BP systolic 113–136; BP diastolic 65–76; PULSE 77–92; RESP 18; TEMP 35.8; O2SAT 95; BMI 34.9
[2021-10-07 09:40] LABS: Basophils # 0.2 K/mm3 (0-0.2); Basophils % 1.5 % (0.1-2.0); Eosinophils # 0.1 K/mm3 (0.0-0.4); Eosinophils % 0.6 % (0.1-12.0); Hematocrit 37.9 % (37.0-47.0); Hemoglobin 12.4 g/dL (12.2-16.2); Lymphocytes # 3.5 K/mm3 (0.7-4.5); Lymphocytes % 21.8 % (10-50); Mean Corpuscular HGB Conc 32.7 g/dL (31.8-35.4); Mean Corpuscular Hemoglobin 29.4 pg (27.0-31.2); Mean Corpuscular Volume 89.8 fl (81-99); Monocytes # 0.7 K/mm3 (0.1-1.0); Monocytes % 4.7 % (1.7-9.3); Neutrophils # 11.3 K/mm3 (1.8-7.8); Neutrophils % 71.4 % (37.0-80.0); Platelet Count 238 K/mm3 (142-424); Red Blood Count 4.22 M/mm3 (4.20-5.40); White Blood Count 15.8 K/mm3 (4.8-10.8)
[2021-10-07 09:42] LABS: MANUAL DIFFERENTIAL MANUAL DIFFERENTIAL (MANUAL DIFF)
[2021-10-07 09:53] LABS: Alanine Aminotransferase 49 U/L (12-78); Albumin Level 3.7 g/dl (3.5-5.0); Albumin/Globulin Ratio 1.4 (1.1-1.8); Alkaline Phosphatase 147 U/L (38-126); Aspartate Amino Transferase 39 U/L (14-36); Bilirubin,Total 0.4 mg/dl (0.2-1.3); Blood Urea Nitrogen 13 mg/dl (7-17); Calcium 8.4 mg/dl (8.4-10.2); Carbon Dioxide 23 mmol/L (22.0-30.0); Chloride 111 mmol/L (98-107); Creatinine Clearance Estimated 90 mL/min (50-200); Estimated Glomerular Filt Rate 71 ml/min (>60); GFR (African American) 86 ML/MIN (>60); Globulin 2.7 g/dL (1.3-3.2); Glucose 101 mg/dl (74-100); Sodium 140 mmol/L (136-145); Total Protein,Serum 6.4 g/dl (6.3-8.2)
[2021-10-07 10:26] LABS: Thyroid Stimulating Hormone 1.63 uIU/mL (0.465-4.68)
[2021-10-07 10:49] LABS: Lymphocytes % 25 % (10-50); Monocytes % 4 % (2-9); Neutrophils % 71 % (42-76); Total Cells Counted 100
[2021-10-07 10:50] LABS: Platelet Estimate Normal
[2021-10-08 14:12] LABS: Adrenocorticotropic Hormone 14.5 pg/mL (7.2-63.3)
== END 2021-10-07 16:20 | disposition home or self-care (01) ==
LOC: INF 09:02
PROVIDERS: PCP Internal Medicine Adolescent Medicine; Visit Provider Internal Medicine Medical Oncology
DX: Z51.11 Encounter for antineoplastic chemotherapy (principal); C50.111 Malignant neoplasm of central portion of right female breast; Z17.1 Estrogen receptor negative status [ER-]; Z79.899 Other long term (current) drug therapy
CPT/HCPCS: 80053; 82024; 82533; 84443; 85007; 85025; 96413; 96415; 96417; J1642; J2469; J7060; J8501; J9045; J9267; J9271

== ENCOUNTER 2021-10-13 09:04 | Outpatient (CLI) | payer MEDICARE, SELFPAY ==
[2021-10-13] VITALS (7 sets, daily range): BP systolic 120–139; BP diastolic 71–90; PULSE 85–90; RESP 18; TEMP 36.4; O2SAT 96; BMI 34.2
[2021-10-13 09:41] LABS: Basophils # 0.1 K/mm3 (0-0.2); Basophils % 0.9 % (0.1-2.0); Eosinophils # 0.1 K/mm3 (0.0-0.4); Eosinophils % 1.3 % (0.1-12.0); Hemoglobin 12.5 g/dL (12.2-16.2); Lymphocytes # 2.2 K/mm3 (0.7-4.5); Lymphocytes % 38.5 % (10-50); Mean Corpuscular HGB Conc 33.7 g/dL (31.8-35.4); Mean Corpuscular Hemoglobin 30.3 pg (27.0-31.2); Mean Corpuscular Volume 89.9 fl (81-99); Mean Platelet Volume 8.4 fl (7.4-10.4); Monocytes # 0.1 K/mm3 (0.1-1.0); Monocytes % 1.7 % (1.7-9.3); Neutrophils # 3.3 K/mm3 (1.8-7.8); Neutrophils % 57.7 % (37.0-80.0); Platelet Count 257 K/mm3 (142-424); Red Blood Count 4.12 M/mm3 (4.20-5.40); Red Cell Distribution Width 15.6 % (11.5-17.5); White Blood Count 5.7 K/mm3 (4.8-10.8)
[2021-10-13 09:48] LABS: Alanine Aminotransferase 40 U/L (12-78); Albumin Level 3.6 g/dl (3.5-5.0); Albumin/Globulin Ratio 1.4 (1.1-1.8); Alkaline Phosphatase 111 U/L (38-126); Aspartate Amino Transferase 29 U/L (14-36); Bilirubin,Total 0.6 mg/dl (0.2-1.3); Blood Urea Nitrogen 21 mg/dl (7-17); Calcium 8.5 mg/dl (8.4-10.2); Carbon Dioxide 23 mmol/L (22.0-30.0); Chloride 110 mmol/L (98-107); Creatinine Clearance Estimated 88 mL/min (50-200); Estimated Glomerular Filt Rate 83 ml/min (>60); GFR (African American) 100 ML/MIN (>60); Globulin 2.6 g/dL (1.3-3.2); Glucose 94 mg/dl (74-100); Sodium 134 mmol/L (136-145); Total Protein,Serum 6.2 g/dl (6.3-8.2)
== END 2021-10-13 14:05 | disposition home or self-care (01) ==
LOC: INF 09:07
PROVIDERS: PCP Internal Medicine Adolescent Medicine; Visit Provider Internal Medicine Medical Oncology
DX: Z51.11 Encounter for antineoplastic chemotherapy (principal); C50.111 Malignant neoplasm of central portion of right female breast; Z17.1 Estrogen receptor negative status [ER-]; Z79.899 Other long term (current) drug therapy
CPT/HCPCS: 80053; 85025; 96413; 96415; J1642; J2405; J7060; J9267

== ENCOUNTER 2021-10-18 08:56 | Outpatient (CLI) | payer MEDICARE, SELFPAY ==
[2021-10-18 09:05] VITALS: BP 132/81; PULSE 76; RESP 18; TEMP 36.6
[2021-10-18 10:15] VITALS: BP 154/91; PULSE 81; RESP 18
== END 2021-10-18 10:15 | disposition home or self-care (01) ==
LOC: INF 08:57
PROVIDERS: PCP Internal Medicine Adolescent Medicine; Visit Provider Internal Medicine Medical Oncology
DX: E86.0 Dehydration (principal)
CPT/HCPCS: 96360; J1642

== ENCOUNTER 2021-10-19 12:35 | Outpatient (CLI) | payer MEDICARE, SELFPAY ==
[2021-10-19 12:42] VITALS: BMI 34.2
[2021-10-19 13:13] LABS: Basophils % 1.3 % (0.1-2.0); Eosinophils % 1.5 % (0.1-12.0); Hematocrit 31.7 % (37.0-47.0); Hemoglobin 11.1 g/dL (12.2-16.2); Lymphocytes # 0.7 K/mm3 (0.7-4.5); Lymphocytes % 44.3 % (10-50); Mean Corpuscular Hemoglobin 30.5 pg (27.0-31.2); Mean Corpuscular Volume 87.3 fl (81-99); Mean Platelet Volume 8.5 fl (7.4-10.4); Monocytes # 0.1 K/mm3 (0.1-1.0); Monocytes % 7.3 % (1.7-9.3); Neutrophils # 0.7 K/mm3 (1.8-7.8); Neutrophils % 45.5 % (37.0-80.0); Platelet Count 344 K/mm3 (142-424); Red Blood Count 3.64 M/mm3 (4.20-5.40); Red Cell Distribution Width 17.2 % (11.5-17.5); White Blood Count 1.5 K/mm3 (4.8-10.8)
[2021-10-19 13:19] LABS: Chloride 108 mmol/L (98-107); Potassium 3.5 mmoL/L (3.5-5.1); Sodium 135 mmol/L (136-145)
[2021-10-19 13:21] LABS: Blood Urea Nitrogen 11 mg/dl (7-17)
[2021-10-19 13:22] LABS: Alanine Aminotransferase 32 U/L (12-78); Albumin Level 3.1 g/dl (3.5-5.0); Albumin/Globulin Ratio 1.2 (1.1-1.8); Alkaline Phosphatase 97 U/L (38-126); Anion Gap 6.5 mEq/L (5-15); Aspartate Amino Transferase 28 U/L (14-36); Bilirubin,Total 0.6 mg/dl (0.2-1.3); Calcium 7.5 mg/dl (8.4-10.2); Carbon Dioxide 24 mmol/L (22.0-30.0); Creatinine Clearance Estimated 88 mL/min (50-200); Estimated Glomerular Filt Rate 71 ml/min (>60); GFR (African American) 86 ML/MIN (>60); Globulin 2.6 g/dL (1.3-3.2); Glucose 85 mg/dl (74-100); Total Protein,Serum 5.7 g/dl (6.3-8.2)
== END 2021-10-19 13:05 | disposition home or self-care (01) ==
LOC: INF 12:36
PROVIDERS: PCP Internal Medicine Adolescent Medicine; Visit Provider Nurse Practitioner Family
DX: C50.919 Malignant neoplasm of unspecified site of unspecified female breast (principal); R53.1 Weakness; Z45.2 Encounter for adjustment and management of vascular access device
CPT/HCPCS: 80053; 85025; J1642

== ENCOUNTER 2021-10-27 08:16 | Outpatient (CLI) | payer MEDICARE, SELFPAY ==
[2021-10-27] VITALS (14 sets, daily range): BP systolic 111–150; BP diastolic 69–92; PULSE 74–90; RESP 18; TEMP 36.3; O2SAT 96; BMI 34.2
[2021-10-27 08:46] LABS: Basophils # 0.1 K/mm3 (0-0.2); Basophils % 1.8 % (0.1-2.0); Eosinophils # 0.2 K/mm3 (0.0-0.4); Eosinophils % 3.5 % (0.1-12.0); Hematocrit 36.6 % (37.0-47.0); Hemoglobin 12.4 g/dL (12.2-16.2); Lymphocytes # 2.3 K/mm3 (0.7-4.5); Lymphocytes % 49.1 % (10-50); Mean Corpuscular Hemoglobin 31.5 pg (27.0-31.2); Mean Corpuscular Volume 92.7 fl (81-99); Mean Platelet Volume 7.6 fl (7.4-10.4); Monocytes # 0.2 K/mm3 (0.1-1.0); Monocytes % 4.6 % (1.7-9.3); Neutrophils # 1.9 K/mm3 (1.8-7.8); Neutrophils % 40.9 % (37.0-80.0); Platelet Count 359 K/mm3 (142-424); Red Blood Count 3.95 M/mm3 (4.20-5.40); Red Cell Distribution Width 17.5 % (11.5-17.5); White Blood Count 4.6 K/mm3 (4.8-10.8)
[2021-10-27 09:08] LABS: Chloride 110 mmol/L (98-107); Potassium 3.8 mmoL/L (3.5-5.1); Sodium 138 mmol/L (136-145)
[2021-10-27 09:11] LABS: Alanine Aminotransferase 45 U/L (12-78); Albumin Level 3.5 g/dl (3.5-5.0); Albumin/Globulin Ratio 1.2 (1.1-1.8); Alkaline Phosphatase 121 U/L (38-126); Anion Gap 8.8 mEq/L (5-15); Aspartate Amino Transferase 33 U/L (14-36); Bilirubin,Total 0.5 mg/dl (0.2-1.3); Blood Urea Nitrogen 17 mg/dl (7-17); Carbon Dioxide 23 mmol/L (22.0-30.0); Creatinine Clearance Estimated 88 mL/min (50-200); Estimated Glomerular Filt Rate 71 ml/min (>60); GFR (African American) 86 ML/MIN (>60); Globulin 2.9 g/dL (1.3-3.2); Glucose 102 mg/dl (74-100); Total Protein,Serum 6.4 g/dl (6.3-8.2)
[2021-10-27 09:42] LABS: Thyroid Stimulating Hormone 4.06 uIU/mL (0.465-4.68)
[2021-10-28 13:15] LABS: Adrenocorticotropic Hormone 12.5 pg/mL (7.2-63.3)
== END 2021-10-27 13:48 | disposition home or self-care (01) ==
LOC: INF 08:17
PROVIDERS: PCP Internal Medicine Adolescent Medicine; Visit Provider Internal Medicine Medical Oncology
DX: Z51.11 Encounter for antineoplastic chemotherapy (principal); C50.111 Malignant neoplasm of central portion of right female breast; Z17.1 Estrogen receptor negative status [ER-]; Z79.899 Other long term (current) drug therapy
CPT/HCPCS: 80053; 82024; 82533; 84443; 85025; 96413; 96415; J1642; J2405; J7060; J9267

== ENCOUNTER 2021-11-04 08:22 | Outpatient (CLI) | payer MEDICARE, SELFPAY ==
[2021-11-04] VITALS (20 sets, daily range): BP systolic 120–143; BP diastolic 64–83; PULSE 76–89; RESP 18; TEMP 36; O2SAT 94; BMI 35.7
[2021-11-04 08:47] LABS: Basophils # 0.2 K/mm3 (0-0.2); Basophils % 4.1 % (0.1-2.0); Eosinophils # 0.2 K/mm3 (0.0-0.4); Eosinophils % 3.6 % (0.1-12.0); Hematocrit 35.7 % (37.0-47.0); Hemoglobin 11.8 g/dL (12.2-16.2); Lymphocytes # 2.5 K/mm3 (0.7-4.5); Lymphocytes % 44.7 % (10-50); Mean Corpuscular HGB Conc 33.2 g/dL (31.8-35.4); Mean Corpuscular Volume 93.4 fl (81-99); Mean Platelet Volume 7.4 fl (7.4-10.4); Monocytes # 0.2 K/mm3 (0.1-1.0); Monocytes % 3.7 % (1.7-9.3); Neutrophils # 2.7 K/mm3 (1.8-7.8); Neutrophils % 48.1 % (37.0-80.0); Platelet Count 346 K/mm3 (142-424); Red Blood Count 3.82 M/mm3 (4.20-5.40); Red Cell Distribution Width 17.5 % (11.5-17.5); White Blood Count 5.7 K/mm3 (4.8-10.8)
[2021-11-04 08:48] LABS: Chloride 110 mmol/L (98-107); Potassium 3.9 mmoL/L (3.5-5.1); Sodium 138 mmol/L (136-145)
[2021-11-04 08:51] LABS: Alanine Aminotransferase 29 U/L (12-78); Albumin Level 3.5 g/dl (3.5-5.0); Albumin/Globulin Ratio 1.3 (1.1-1.8); Alkaline Phosphatase 106 U/L (38-126); Anion Gap 7.9 mEq/L (5-15); Aspartate Amino Transferase 28 U/L (14-36); Bilirubin,Total 0.6 mg/dl (0.2-1.3); Blood Urea Nitrogen 13 mg/dl (7-17); Calcium 7.9 mg/dl (8.4-10.2); Carbon Dioxide 24 mmol/L (22.0-30.0); Creatinine Clearance Estimated 92 mL/min (50-200); Estimated Glomerular Filt Rate 62 ml/min (>60); GFR (African American) 75 ML/MIN (>60); Globulin 2.8 g/dL (1.3-3.2); Glucose 81 mg/dl (74-100); Total Protein,Serum 6.3 g/dl (6.3-8.2)
== END 2021-11-04 15:40 | disposition home or self-care (01) ==
LOC: INF 08:23
PROVIDERS: PCP Internal Medicine Adolescent Medicine; Visit Provider Internal Medicine Medical Oncology
DX: Z51.11 Encounter for antineoplastic chemotherapy (principal); C50.111 Malignant neoplasm of central portion of right female breast; Z17.1 Estrogen receptor negative status [ER-]; Z79.899 Other long term (current) drug therapy
CPT/HCPCS: 80053; 85025; 96413; 96415; 96417; J1642; J2469; J7060; J8501; J9045; J9267; J9271

== ENCOUNTER 2021-11-10 08:31 | Outpatient (CLI) | payer MEDICARE, SELFPAY ==
[2021-11-10] VITALS (13 sets, daily range): BP systolic 112–141; BP diastolic 62–83; PULSE 70–84; RESP 16; TEMP 36; O2SAT 94; BMI 34.7
[2021-11-10 09:11] LABS: Basophils # 0.1 K/mm3 (0-0.2); Basophils % 2.3 % (0.1-2.0); Eosinophils # 0.1 K/mm3 (0.0-0.4); Eosinophils % 2.5 % (0.1-12.0); Hematocrit 35.9 % (37.0-47.0); Hemoglobin 11.9 g/dL (12.2-16.2); Lymphocytes # 2.7 K/mm3 (0.7-4.5); Lymphocytes % 53.5 % (10-50); Mean Corpuscular Hemoglobin 30.8 pg (27.0-31.2); Mean Corpuscular Volume 93.4 fl (81-99); Mean Platelet Volume 7.9 fl (7.4-10.4); Monocytes # 0.1 K/mm3 (0.1-1.0); Monocytes % 1.9 % (1.7-9.3); Neutrophils % 39.8 % (37.0-80.0); Platelet Count 296 K/mm3 (142-424); Red Blood Count 3.85 M/mm3 (4.20-5.40); Red Cell Distribution Width 17.1 % (11.5-17.5); White Blood Count 5.1 K/mm3 (4.8-10.8)
[2021-11-10 09:14] LABS: Chloride 110 mmol/L (98-107); Potassium 3.7 mmoL/L (3.5-5.1); Sodium 137 mmol/L (136-145)
[2021-11-10 09:15] LABS: MANUAL DIFFERENTIAL MANUAL DIFFERENTIAL (MANUAL DIFF)
[2021-11-10 09:16] LABS: Alanine Aminotransferase 27 U/L (12-78); Aspartate Amino Transferase 31 U/L (14-36); Blood Urea Nitrogen 22 mg/dl (7-17); Creatinine Clearance Estimated 89 mL/min (50-200); Estimated Glomerular Filt Rate 71 ml/min (>60); GFR (African American) 86 ML/MIN (>60)
[2021-11-10 09:17] LABS: Albumin Level 3.3 g/dl (3.5-5.0); Albumin/Globulin Ratio 1.2 (1.1-1.8); Alkaline Phosphatase 98 U/L (38-126); Anion Gap 7.7 mEq/L (5-15); Bilirubin,Total 0.6 mg/dl (0.2-1.3); Calcium 7.8 mg/dl (8.4-10.2); Carbon Dioxide 23 mmol/L (22.0-30.0); Globulin 2.8 g/dL (1.3-3.2); Glucose 82 mg/dl (74-100); Magnesium 1.8 mg/dl (1.6-2.3); Total Protein,Serum 6.1 g/dl (6.3-8.2)
[2021-11-10 09:32] LABS: Anisocytosis 1+; Lymphocytes % 55 % (10-50); Macrocytosis 1+; Monocytes % 3 % (2-9); Neutrophils % 40 % (42-76); Platelet Estimate Normal; Total Cells Counted 100
[2021-11-10 09:48] LABS: Thyroid Stimulating Hormone 4.21 uIU/mL (0.465-4.68)
[2021-11-10 09:53] LABS: Ferritin 158 ng/ml (11.1-264)
== END 2021-11-10 14:15 | disposition home or self-care (01) ==
LOC: INF 08:32
PROVIDERS: PCP Internal Medicine Adolescent Medicine; Visit Provider Internal Medicine Medical Oncology
DX: Z51.11 Encounter for antineoplastic chemotherapy (principal); C50.111 Malignant neoplasm of central portion of right female breast; Z17.1 Estrogen receptor negative status [ER-]; Z79.899 Other long term (current) drug therapy
CPT/HCPCS: 80053; 82728; 83735; 84443; 85007; 85025; 96413; 96415; J1642; J2405; J7060; J9267

== ENCOUNTER 2021-11-17 08:17 | Outpatient (CLI) | payer MEDICARE, SELFPAY ==
[2021-11-17] VITALS (7 sets, daily range): BP systolic 131–144; BP diastolic 51–81; PULSE 78–88; RESP 18; TEMP 36.6; O2SAT 99; BMI 34.9
[2021-11-17 09:09] LABS: Chloride 112 mmol/L (98-107); Sodium 138 mmol/L (136-145)
[2021-11-17 09:11] LABS: Blood Urea Nitrogen 13 mg/dl (7-17); Creatinine Clearance Estimated 90 mL/min (50-200); Estimated Glomerular Filt Rate 83 ml/min (>60); GFR (African American) 100 ML/MIN (>60)
[2021-11-17 09:12] LABS: Alanine Aminotransferase 33 U/L (12-78); Albumin Level 3.4 g/dl (3.5-5.0); Albumin/Globulin Ratio 1.3 (1.1-1.8); Alkaline Phosphatase 90 U/L (38-126); Anion Gap 7.4 mEq/L (5-15); Aspartate Amino Transferase 30 U/L (14-36); Bilirubin,Total 0.4 mg/dl (0.2-1.3); Calcium 8.6 mg/dl (8.4-10.2); Carbon Dioxide 22 mmol/L (22.0-30.0); Globulin 2.7 g/dL (1.3-3.2); Glucose 95 mg/dl (74-100); Potassium 3.4 mmoL/L (3.5-5.1); Total Protein,Serum 6.1 g/dl (6.3-8.2)
[2021-11-17 11:17] LABS: Hematocrit 34.4 % (37.0-47.0); Hemoglobin 11.4 g/dL (12.2-16.2); Mean Corpuscular HGB Conc 33.1 g/dL (31.8-35.4); Mean Corpuscular Hemoglobin 30.4 pg (27.0-31.2); Mean Corpuscular Volume 91.7 fl (81-99); Red Blood Count 3.75 M/mm3 (4.20-5.40)
[2021-11-17 11:18] LABS: Basophils % 1.3 % (0.1-2.0); Eosinophils # 0.1 K/mm3 (0.0-0.4); Eosinophils % 2.4 % (0.1-12.0); Lymphocytes # 2.4 K/mm3 (0.7-4.5); Lymphocytes % 54.2 % (10-50); Mean Platelet Volume 9.7 fl (7.4-10.4); Monocytes # 0.3 K/mm3 (0.1-1.0); Monocytes % 6.2 % (1.7-9.3); Neutrophils # 1.6 K/mm3 (1.8-7.8); Neutrophils % 35.7 % (37.0-80.0); Platelet Count 339 K/mm3 (142-424); Red Cell Distribution Width 17.4 % (11.5-17.5)
[2021-11-17 11:19] LABS: Basophils # 0.1 K/mm3 (0-0.2); White Blood Count 4.5 K/mm3 (4.8-10.8)
[2021-11-17 11:22] LABS: MANUAL DIFFERENTIAL MANUAL DIFFERENTIAL (MANUAL DIFF)
== END 2021-11-17 15:15 | disposition home or self-care (01) ==
LOC: INF 08:19
PROVIDERS: PCP Internal Medicine Adolescent Medicine; Visit Provider Internal Medicine Medical Oncology
DX: Z51.11 Encounter for antineoplastic chemotherapy (principal); C50.111 Malignant neoplasm of central portion of right female breast; Z17.1 Estrogen receptor negative status [ER-]; Z79.899 Other long term (current) drug therapy
CPT/HCPCS: 80053; 85007; 85025; 96413; 96415; J1642; J2405; J7060; J9267

== ENCOUNTER 2021-11-24 08:48 | Outpatient (CLI) | payer MEDICARE, SELFPAY ==
[2021-11-24 08:55] VITALS: BMI 34.9
[2021-11-24 09:22] LABS: Basophils # 0.1 K/mm3 (0-0.2); Basophils % 3.7 % (0.1-2.0); Eosinophils # 0.1 K/mm3 (0.0-0.4); Eosinophils % 2.8 % (0.1-12.0); Hematocrit 35.1 % (37.0-47.0); Lymphocytes # 1.7 K/mm3 (0.7-4.5); Lymphocytes % 45.2 % (10-50); Mean Corpuscular HGB Conc 34.1 g/dL (31.8-35.4); Mean Corpuscular Hemoglobin 32.1 pg (27.0-31.2); Mean Corpuscular Volume 93.9 fl (81-99); Monocytes # 0.1 K/mm3 (0.1-1.0); Monocytes % 2.7 % (1.7-9.3); Neutrophils # 1.8 K/mm3 (1.8-7.8); Neutrophils % 45.6 % (37.0-80.0); Platelet Count 334 K/mm3 (142-424); Red Blood Count 3.73 M/mm3 (4.20-5.40); Red Cell Distribution Width 17.9 % (11.5-17.5); White Blood Count 3.8 K/mm3 (4.8-10.8)
[2021-11-24 09:24] LABS: Chloride 109 mmol/L (98-107); Potassium 3.7 mmoL/L (3.5-5.1); Sodium 137 mmol/L (136-145)
[2021-11-24 09:26] LABS: Blood Urea Nitrogen 15 mg/dl (7-17); Creatinine Clearance Estimated 90 mL/min (50-200); Estimated Glomerular Filt Rate 71 ml/min (>60); GFR (African American) 86 ML/MIN (>60)
[2021-11-24 09:27] LABS: Alanine Aminotransferase 41 U/L (12-78); Albumin Level 3.5 g/dl (3.5-5.0); Albumin/Globulin Ratio 1.4 (1.1-1.8); Alkaline Phosphatase 101 U/L (38-126); Anion Gap 9.7 mEq/L (5-15); Aspartate Amino Transferase 33 U/L (14-36); Bilirubin,Total 0.6 mg/dl (0.2-1.3); Calcium 8.8 mg/dl (8.4-10.2); Carbon Dioxide 22 mmol/L (22.0-30.0); Globulin 2.5 g/dL (1.3-3.2); Glucose 120 mg/dl (74-100)
[2021-11-24 10:12] LABS: Thyroid Stimulating Hormone 2.98 uIU/mL (0.465-4.68)
[2021-11-25 12:13] LABS: Adrenocorticotropic Hormone 10.1 pg/mL (7.2-63.3)
== END 2021-11-24 10:10 | disposition home or self-care (01) ==
LOC: INF 08:50
PROVIDERS: PCP Internal Medicine Adolescent Medicine; Visit Provider Internal Medicine Medical Oncology
DX: C50.911 Malignant neoplasm of unspecified site of right female breast (principal); Z79.899 Other long term (current) drug therapy; Z45.2 Encounter for adjustment and management of vascular access device; Z17.1 Estrogen receptor negative status [ER-]
CPT/HCPCS: 80053; 82024; 82533; 84443; 85025; J1642

== ENCOUNTER 2021-12-01 07:55 | Outpatient (CLI) | payer MEDICARE, SELFPAY ==
[2021-12-01] VITALS (13 sets, daily range): BP systolic 100–123; BP diastolic 44–75; PULSE 71–84; RESP 18; TEMP 36.7; O2SAT 98–100; BMI 35.2
[2021-12-01 08:50] LABS: Basophils # 0.1 K/mm3 (0-0.2); Basophils % 2.7 % (0.1-2.0); Eosinophils # 0.3 K/mm3 (0.0-0.4); Eosinophils % 4.8 % (0.1-12.0); Hemoglobin 12.3 g/dL (12.2-16.2); Lymphocytes # 1.9 K/mm3 (0.7-4.5); Lymphocytes % 36.8 % (10-50); Mean Corpuscular HGB Conc 33.3 g/dL (31.8-35.4); Mean Corpuscular Volume 93.1 fl (81-99); Mean Platelet Volume 7.9 fl (7.4-10.4); Monocytes # 0.4 K/mm3 (0.1-1.0); Neutrophils # 2.6 K/mm3 (1.8-7.8); Neutrophils % 48.8 % (37.0-80.0); Platelet Count 253 K/mm3 (142-424); Red Blood Count 3.97 M/mm3 (4.20-5.40); Red Cell Distribution Width 17.2 % (11.5-17.5); White Blood Count 5.2 K/mm3 (4.8-10.8)
[2021-12-01 08:51] LABS: Alanine Aminotransferase 30 U/L (12-78); Albumin Level 3.7 g/dl (3.5-5.0); Albumin/Globulin Ratio 1.3 (1.1-1.8); Alkaline Phosphatase 104 U/L (38-126); Anion Gap 11.6 mEq/L (5-15); Aspartate Amino Transferase 30 U/L (14-36); Bilirubin,Total 0.4 mg/dl (0.2-1.3); Blood Urea Nitrogen 9 mg/dl (7-17); Calcium 8.5 mg/dl (8.4-10.2); Carbon Dioxide 22 mmol/L (22.0-30.0); Chloride 108 mmol/L (98-107); Creatinine Clearance Estimated 91 mL/min (50-200); Estimated Glomerular Filt Rate 71 ml/min (>60); GFR (African American) 86 ML/MIN (>60); Globulin 2.9 g/dL (1.3-3.2); Glucose 115 mg/dl (74-100); Potassium 3.6 mmoL/L (3.5-5.1); Sodium 138 mmol/L (136-145); Total Protein,Serum 6.6 g/dl (6.3-8.2)
== END 2021-12-01 14:48 | disposition home or self-care (01) ==
LOC: INF 07:56
PROVIDERS: PCP Internal Medicine Adolescent Medicine; Visit Provider Internal Medicine Medical Oncology
DX: Z51.11 Encounter for antineoplastic chemotherapy (principal); C50.111 Malignant neoplasm of central portion of right female breast; Z17.1 Estrogen receptor negative status [ER-]; Z79.899 Other long term (current) drug therapy
CPT/HCPCS: 80053; 82533; 85025; 96413; 96415; 96417; J1642; J2469; J7060; J8501; J9045; J9267; J9271

== ENCOUNTER → 2021-12-05 14:16 | Outpatient (CLI) | payer MEDICARE, SELFPAY ==
--- NOTE | 2021-12-05 14:21 | US_ITS ---
PROCEDURE INFORMATION: Exam: US Right Breast, Complete Exam date and time: 12/05/2021 2:35 PM Age: 71 years old Clinical indication: Right breast malignancy. PT on chemo regimen prior to surgery. For follow-up TECHNIQUE: Imaging protocol: Complete ultrasound of all four quadrants of the Right breast and the retroareolar regions, including ultrasound of the axilla when performed. COMPARISON: US BIOPSY BREAST RT 08/09/2021 9:44 AM FINDINGS: Breast: Sonographic images of the right breast including the retroareolar region, all 4 quadrants and the axilla demonstrates a residual 1.7 x 0.3 x 0.7 cm hypoechoic mass in the approximate 12 o'clock axis at the site of prior biopsy for carcinoma. The mass on prior sonogram measured 2.3 x 2.4 x 2.0 cm. This also corresponds to the patient's complaint of a palpable area. No other solid or cystic masses are noted in the right breast. No skin thickening or axillary adenopathy. Several fat containing benign-appearing axillary lymph nodes are noted. IMPRESSION: 1. Since prior ultrasound dated 07/27/2021, there has been partial response to neoadjuvant chemotherapy. 2. No axillary adenopathy. ASSESSMENT: BI-RADS Category 6: Known Biopsy-Proven Malignancy
== END ==
PROVIDERS: PCP Internal Medicine Adolescent Medicine; Visit Provider Internal Medicine Medical Oncology
DX: C50.911 Malignant neoplasm of unspecified site of right female breast (principal)
CPT/HCPCS: 76641

== ENCOUNTER 2021-12-08 08:07 | Outpatient (CLI) | payer MEDICARE, SELFPAY ==
[2021-12-08] VITALS (7 sets, daily range): BP systolic 121–145; BP diastolic 69–85; PULSE 76–86; RESP 18; TEMP 35.9; O2SAT 95; BMI 35.2
[2021-12-08 08:39] LABS: Basophils # 0.1 K/mm3 (0-0.2); Basophils % 1.7 % (0.1-2.0); Eosinophils # 0.2 K/mm3 (0.0-0.4); Eosinophils % 2.9 % (0.1-12.0); Hematocrit 36.2 % (37.0-47.0); Hemoglobin 12.3 g/dL (12.2-16.2); Lymphocytes # 3.5 K/mm3 (0.7-4.5); Lymphocytes % 42.9 % (10-50); Mean Corpuscular Hemoglobin 31.5 pg (27.0-31.2); Mean Corpuscular Volume 92.7 fl (81-99); Mean Platelet Volume 7.8 fl (7.4-10.4); Monocytes # 0.2 K/mm3 (0.1-1.0); Monocytes % 2.3 % (1.7-9.3); Neutrophils # 4.1 K/mm3 (1.8-7.8); Neutrophils % 50.2 % (37.0-80.0); Platelet Count 346 K/mm3 (142-424); Red Blood Count 3.91 M/mm3 (4.20-5.40); Red Cell Distribution Width 17.1 % (11.5-17.5); White Blood Count 8.1 K/mm3 (4.8-10.8)
[2021-12-08 08:44] LABS: Chloride 106 mmol/L (98-107); Potassium 3.9 mmoL/L (3.5-5.1); Sodium 137 mmol/L (136-145)
[2021-12-08 08:46] LABS: Blood Urea Nitrogen 22 mg/dl (7-17); Creatinine Clearance Estimated 91 mL/min (50-200); Estimated Glomerular Filt Rate 71 ml/min (>60); GFR (African American) 86 ML/MIN (>60)
[2021-12-08 08:47] LABS: Alanine Aminotransferase 29 U/L (12-78); Albumin Level 3.4 g/dl (3.5-5.0); Albumin/Globulin Ratio 1.3 (1.1-1.8); Alkaline Phosphatase 111 U/L (38-126); Anion Gap 9.9 mEq/L (5-15); Aspartate Amino Transferase 28 U/L (14-36); Bilirubin,Total 0.3 mg/dl (0.2-1.3); Carbon Dioxide 25 mmol/L (22.0-30.0); Globulin 2.6 g/dL (1.3-3.2)
[2021-12-08 08:48] LABS: Calcium 8.9 mg/dl (8.4-10.2); Glucose 106 mg/dl (74-100)
== END 2021-12-08 13:50 | disposition home or self-care (01) ==
LOC: INF 08:08
PROVIDERS: PCP Internal Medicine Adolescent Medicine; Visit Provider Internal Medicine Medical Oncology
DX: Z51.11 Encounter for antineoplastic chemotherapy (principal); C50.111 Malignant neoplasm of central portion of right female breast; Z17.1 Estrogen receptor negative status [ER-]; Z79.899 Other long term (current) drug therapy
CPT/HCPCS: 80053; 85025; 96413; 96415; J1642; J2405; J7060; J9267

== ENCOUNTER → 2021-12-15 08:19 | Outpatient (CLI) | payer MEDICARE, SELFPAY ==
[2021-12-15 08:23] VITALS: BMI 34.4
[2021-12-15 08:46] LABS: Basophils # 0.1 K/mm3 (0-0.2); Basophils % 3.1 % (0.1-2.0); Eosinophils # 0.1 K/mm3 (0.0-0.4); Eosinophils % 1.6 % (0.1-12.0); Hematocrit 36.2 % (37.0-47.0); Hemoglobin 12.1 g/dL (12.2-16.2); Lymphocytes % 51.7 % (10-50); Mean Corpuscular HGB Conc 33.5 g/dL (31.8-35.4); Mean Corpuscular Hemoglobin 31.4 pg (27.0-31.2); Mean Corpuscular Volume 93.8 fl (81-99); Mean Platelet Volume 8.1 fl (7.4-10.4); Monocytes # 0.2 K/mm3 (0.1-1.0); Monocytes % 5.3 % (1.7-9.3); Neutrophils # 1.5 K/mm3 (1.8-7.8); Neutrophils % 38.4 % (37.0-80.0); Platelet Count 325 K/mm3 (142-424); Red Blood Count 3.86 M/mm3 (4.20-5.40); Red Cell Distribution Width 17.2 % (11.5-17.5); White Blood Count 3.9 K/mm3 (4.8-10.8)
[2021-12-15 08:50] LABS: MANUAL DIFFERENTIAL MANUAL DIFFERENTIAL (MANUAL DIFF)
[2021-12-15 08:51] LABS: Alanine Aminotransferase 28 U/L (12-78); Albumin Level 3.4 g/dl (3.5-5.0); Albumin/Globulin Ratio 1.2 (1.1-1.8); Alkaline Phosphatase 98 U/L (38-126); Anion Gap 9.6 mEq/L (5-15); Aspartate Amino Transferase 28 U/L (14-36); Blood Urea Nitrogen 14 mg/dl (7-17); Calcium 8.7 mg/dl (8.4-10.2); Carbon Dioxide 25 mmol/L (22.0-30.0); Chloride 108 mmol/L (98-107); Creatinine Clearance Estimated 89 mL/min (50-200); Estimated Glomerular Filt Rate 83 ml/min (>60); GFR (African American) 100 ML/MIN (>60); Globulin 2.8 g/dL (1.3-3.2); Glucose 95 mg/dl (74-100); Potassium 3.6 mmoL/L (3.5-5.1); Sodium 139 mmol/L (136-145); Total Protein,Serum 6.2 g/dl (6.3-8.2)
[2021-12-15 08:57] LABS: Bilirubin,Total 0.1 mg/dl (0.2-1.3)
[2021-12-15 09:03] LABS: Lymphocytes % 45 % (10-50); Monocytes % 9 % (2-9); Neutrophils % 46 % (42-76); Total Cells Counted 100
[2021-12-15 09:04] LABS: Anisocytosis 1+; Macrocytosis 1+; Ovalocytes 1+; Platelet Estimate Normal
--- NOTE | 2021-12-15 09:05 | PC.NURSE ---
0905-NOTIFIED WITH LAB RESULTS; STATES SHE WANTS TO SEE PT IN OFFICE TODAY. TRANSPORTED PT TO ONCOLOGY APPOINTMENT;PT WILL RETURN.
[2021-12-15 10:25] VITALS: BP 121/75; PULSE 90; RESP 18; TEMP 36.7; O2SAT 94
[2021-12-15 11:05] VITALS: BP 114/68; PULSE 83; RESP 18
== END ==
PROVIDERS: PCP Internal Medicine Adolescent Medicine; Visit Provider Internal Medicine Medical Oncology
DX: Z51.11 Encounter for antineoplastic chemotherapy (principal); C50.111 Malignant neoplasm of central portion of right female breast; Z17.1 Estrogen receptor negative status [ER-]; Z79.899 Other long term (current) drug therapy
CPT/HCPCS: 80053; 85007; 85025; 96360; J1642

== ENCOUNTER → 2021-12-27 15:52 | Outpatient (CLI) | payer MEDICARE, SELFPAY ==
--- NOTE | 2021-12-27 15:57 | XR_ITS ---
FINAL REPORT CLINICAL HISTORY: RIGHT FOOT PAIN, Passed out last and landed on right foot. FINDINGS: RIGHT FOOT Three views were obtained. There is a comminuted fracture of the distal 5th metatarsal with mild medial angulation of the distal fracture fragment. Fracture does not extend to the joint. IMPRESSION: Comminuted fracture of the distal 5th metatarsal. Reviewed, Interpreted and Dictated by Kali Amin III, MD Transcribed by Nena Burns Authenticated and [facility]
== END ==
PROVIDERS: PCP Internal Medicine Adolescent Medicine; Visit Provider Internal Medicine Adolescent Medicine
DX: M79.671 Pain in right foot (principal)
CPT/HCPCS: 73630

== ENCOUNTER 2021-12-29 07:57 | Outpatient (CLI) | payer MEDICARE, SELFPAY ==
[2021-12-29] VITALS (10 sets, daily range): BP systolic 109–137; BP diastolic 65–81; PULSE 81–99; RESP 18; O2SAT 95; BMI 34.2
[2021-12-29 08:36] LABS: Basophils # 0.2 K/mm3 (0-0.2); Basophils % 3.7 % (0.1-2.0); Eosinophils # 0.2 K/mm3 (0.0-0.4); Eosinophils % 3.9 % (0.1-12.0); Hematocrit 39.4 % (37.0-47.0); Hemoglobin 12.9 g/dL (12.2-16.2); Lymphocytes # 2.4 K/mm3 (0.7-4.5); Lymphocytes % 43.1 % (10-50); Mean Corpuscular HGB Conc 32.8 g/dL (31.8-35.4); Mean Corpuscular Hemoglobin 30.9 pg (27.0-31.2); Mean Corpuscular Volume 94.1 fl (81-99); Mean Platelet Volume 7.7 fl (7.4-10.4); Monocytes # 0.3 K/mm3 (0.1-1.0); Monocytes % 5.1 % (1.7-9.3); Neutrophils # 2.4 K/mm3 (1.8-7.8); Neutrophils % 44.1 % (37.0-80.0); Platelet Count 266 K/mm3 (142-424); Red Blood Count 4.19 M/mm3 (4.20-5.40); Red Cell Distribution Width 16.6 % (11.5-17.5); White Blood Count 5.5 K/mm3 (4.8-10.8)
[2021-12-29 08:43] LABS: Chloride 109 mmol/L (98-107); Sodium 139 mmol/L (136-145)
[2021-12-29 08:44] LABS: Potassium 3.5 mmoL/L (3.5-5.1)
[2021-12-29 08:46] LABS: Alanine Aminotransferase 37 U/L (12-78); Albumin Level 3.9 g/dl (3.5-5.0); Albumin/Globulin Ratio 1.3 (1.1-1.8); Alkaline Phosphatase 89 U/L (38-126); Anion Gap 10.5 mEq/L (5-15); Aspartate Amino Transferase 40 U/L (14-36); Bilirubin,Total 0.4 mg/dl (0.2-1.3); Blood Urea Nitrogen 9 mg/dl (7-17); Carbon Dioxide 23 mmol/L (22.0-30.0); Creatinine Clearance Estimated 88 mL/min (50-200); Estimated Glomerular Filt Rate 71 ml/min (>60); GFR (African American) 86 ML/MIN (>60); Globulin 2.9 g/dL (1.3-3.2); Total Protein,Serum 6.8 g/dl (6.3-8.2)
[2021-12-29 08:47] LABS: Calcium 8.8 mg/dl (8.4-10.2); Glucose 147 mg/dl (74-100)
[2021-12-29 09:17] LABS: Thyroid Stimulating Hormone 3.96 uIU/mL (0.465-4.68)
[2021-12-30 13:12] LABS: Adrenocorticotropic Hormone 7.8 pg/mL (7.2-63.3)
== END 2021-12-29 13:15 | disposition home or self-care (01) ==
LOC: INF 07:57
PROVIDERS: PCP Internal Medicine Adolescent Medicine; Visit Provider Internal Medicine Medical Oncology
DX: Z51.11 Encounter for antineoplastic chemotherapy (principal); C50.111 Malignant neoplasm of central portion of right female breast; Z17.1 Estrogen receptor negative status [ER-]; Z79.899 Other long term (current) drug therapy
CPT/HCPCS: 80053; 82024; 82533; 84443; 85025; 96409; 96411; 96413; 96415; 96417; J1642; J2469; J8501; J9000; J9070; J9271

== ENCOUNTER 2021-12-29 08:40 | Outpatient (RCR) | payer MEDICARE, SELFPAY | END 2021-12-29 09:50 | disposition home or self-care (01) | LOC: PT 08:40 | PROVIDERS: Visit Provider Internal Medicine Adolescent Medicine | DX: S92.352D Displaced fracture of fifth metatarsal bone, left foot, subsequent encounter for fracture with routine healing (principal) ==

== ENCOUNTER 2021-12-31 12:54 | Outpatient (CLI) | payer MEDICARE, SELFPAY ==
[2021-12-31 13:05] VITALS: BP 117/78; PULSE 92; RESP 18; TEMP 36.8; O2SAT 95; BMI 35.2
[2021-12-31 13:45] VITALS: BP 117/78; PULSE 92; RESP 18; TEMP 36.8; O2SAT 95
== END 2021-12-31 13:45 | disposition home or self-care (01) ==
LOC: INF 12:54
PROVIDERS: PCP Internal Medicine Adolescent Medicine; Visit Provider Internal Medicine Medical Oncology
DX: Z51.11 Encounter for antineoplastic chemotherapy (principal); C50.111 Malignant neoplasm of central portion of right female breast; Z17.1 Estrogen receptor negative status [ER-]; Z79.899 Other long term (current) drug therapy
CPT/HCPCS: 96372; 96401; J2505

== ENCOUNTER 2022-01-05 10:58 | Outpatient (CLI) | payer MEDICARE, SELFPAY ==
[2022-01-05 11:02] VITALS: BMI 35.2
[2022-01-05 11:25] LABS: Basophils # 0.1 K/mm3 (0-0.2); Basophils % 3.2 % (0.1-2.0); Chloride 107 mmol/L (98-107); Eosinophils # 0.1 K/mm3 (0.0-0.4); Eosinophils % 4.4 % (0.1-12.0); Hematocrit 35.4 % (37.0-47.0); Hemoglobin 12.1 g/dL (12.2-16.2); Lymphocytes # 0.9 K/mm3 (0.7-4.5); Mean Corpuscular HGB Conc 34.3 g/dL (31.8-35.4); Mean Corpuscular Hemoglobin 31.5 pg (27.0-31.2); Mean Corpuscular Volume 91.9 fl (81-99); Mean Platelet Volume 7.7 fl (7.4-10.4); Monocytes # 0.1 K/mm3 (0.1-1.0); Monocytes % 3.9 % (1.7-9.3); Neutrophils # 1.5 K/mm3 (1.8-7.8); Neutrophils % 54.5 % (37.0-80.0); Platelet Count 177 K/mm3 (142-424); Red Blood Count 3.85 M/mm3 (4.20-5.40); Red Cell Distribution Width 16.1 % (11.5-17.5); White Blood Count 2.8 K/mm3 (4.8-10.8)
[2022-01-05 11:26] LABS: Potassium 3.8 mmoL/L (3.5-5.1); Sodium 137 mmol/L (136-145)
[2022-01-05 11:28] LABS: Alanine Aminotransferase 24 U/L (12-78); Aspartate Amino Transferase 28 U/L (14-36); Blood Urea Nitrogen 14 mg/dl (7-17); Creatinine Clearance Estimated 91 mL/min (50-200); Estimated Glomerular Filt Rate 71 ml/min (>60); GFR (African American) 86 ML/MIN (>60)
[2022-01-05 11:29] LABS: Albumin Level 3.9 g/dl (3.5-5.0); Albumin/Globulin Ratio 1.4 (1.1-1.8); Alkaline Phosphatase 113 U/L (38-126); Anion Gap 10.8 mEq/L (5-15); Bilirubin,Total 0.5 mg/dl (0.2-1.3); Calcium 8.7 mg/dl (8.4-10.2); Carbon Dioxide 23 mmol/L (22.0-30.0); Globulin 2.8 g/dL (1.3-3.2); Glucose 104 mg/dl (74-100); Total Protein,Serum 6.7 g/dl (6.3-8.2)
[2022-01-05 12:30] VITALS: BP 116/59; PULSE 69; RESP 18; O2SAT 98
[2022-01-05 14:15] VITALS: BP 139/86; PULSE 84; RESP 18; O2SAT 99
== END 2022-01-05 14:15 | disposition home or self-care (01) ==
LOC: INF 11:01
PROVIDERS: PCP Internal Medicine Adolescent Medicine; Visit Provider Internal Medicine Medical Oncology
DX: C50.111 Malignant neoplasm of central portion of right female breast (principal); Z17.1 Estrogen receptor negative status [ER-]; E86.0 Dehydration
CPT/HCPCS: 80053; 85025; 96360; 96375; J1642; J2405

== ENCOUNTER 2022-01-19 08:00 | Outpatient (CLI) | payer MEDICARE, SELFPAY ==
[2022-01-19 08:08] VITALS: BMI 34.7
[2022-01-19 08:52] LABS: Basophils # 0.1 K/mm3 (0-0.2); Basophils % 2.2 % (0.1-2.0); Chloride 113 mmol/L (98-107); Eosinophils # 0.1 K/mm3 (0.0-0.4); Eosinophils % 0.8 % (0.1-12.0); Hematocrit 36.1 % (37.0-47.0); Hemoglobin 12.4 g/dL (12.2-16.2); Lymphocytes # 2.2 K/mm3 (0.7-4.5); Mean Corpuscular HGB Conc 34.2 g/dL (31.8-35.4); Mean Corpuscular Hemoglobin 31.1 pg (27.0-31.2); Mean Platelet Volume 7.4 fl (7.4-10.4); Monocytes # 0.6 K/mm3 (0.1-1.0); Monocytes % 9.1 % (1.7-9.3); Neutrophils # 3.5 K/mm3 (1.8-7.8); Neutrophils % 53.9 % (37.0-80.0); Platelet Count 500 K/mm3 (142-424); Red Blood Count 3.97 M/mm3 (4.20-5.40); Red Cell Distribution Width 16.4 % (11.5-17.5); Sodium 140 mmol/L (136-145); White Blood Count 6.6 K/mm3 (4.8-10.8)
[2022-01-19 08:53] LABS: Potassium 3.6 mmoL/L (3.5-5.1)
[2022-01-19 08:55] LABS: Alanine Aminotransferase 27 U/L (12-78); Albumin Level 3.7 g/dl (3.5-5.0); Albumin/Globulin Ratio 1.4 (1.1-1.8); Alkaline Phosphatase 92 U/L (38-126); Anion Gap 8.6 mEq/L (5-15); Aspartate Amino Transferase 33 U/L (14-36); Bilirubin,Total 0.2 mg/dl (0.2-1.3); Blood Urea Nitrogen 16 mg/dl (7-17); Carbon Dioxide 22 mmol/L (22.0-30.0); Creatinine Clearance Estimated 89 mL/min (50-200); Estimated Glomerular Filt Rate 99 ml/min (>60); GFR (African American) 120 ML/MIN (>60); Globulin 2.7 g/dL (1.3-3.2); Total Protein,Serum 6.4 g/dl (6.3-8.2)
[2022-01-19 08:56] LABS: Calcium 8.6 mg/dl (8.4-10.2); Glucose 107 mg/dl (74-100)
[2022-01-19 10:48] VITALS: BP 122/87; PULSE 89; RESP 20; TEMP 36.4; O2SAT 98
[2022-01-19 11:20] VITALS: BP 126/85; PULSE 85; RESP 18; O2SAT 99
[2022-01-19 11:23] LABS: Thyroid Stimulating Hormone 6.79 uIU/mL (0.465-4.68)
[2022-01-19 11:50] VITALS: BP 122/78; PULSE 81; RESP 18; O2SAT 98
[2022-01-19 12:20] VITALS: BP 125/80; PULSE 77; RESP 19; O2SAT 98
[2022-01-19 12:50] VITALS: BP 126/74; PULSE 78; RESP 17; TEMP 36.6; O2SAT 99
[2022-01-19 13:38] VITALS: BP 128/76; PULSE 82; RESP 19; O2SAT 98
[2022-01-20 13:30] LABS: Adrenocorticotropic Hormone 10.8 pg/mL (7.2-63.3)
== END 2022-01-19 13:38 | disposition home or self-care (01) ==
LOC: INF 08:03
PROVIDERS: PCP Internal Medicine Adolescent Medicine; Visit Provider Internal Medicine Medical Oncology
DX: Z51.11 Encounter for antineoplastic chemotherapy (principal); C50.111 Malignant neoplasm of central portion of right female breast; Z17.1 Estrogen receptor negative status [ER-]; Z79.899 Other long term (current) drug therapy
CPT/HCPCS: 80053; 82024; 82533; 84443; 85025; 96411; 96413; 96417; J1642; J2469; J9000; J9070; J9271

== ENCOUNTER 2022-01-20 13:56 | Outpatient (CLI) | payer MEDICARE, SELFPAY ==
[2022-01-20 14:15] VITALS: BP 116/72; PULSE 72; RESP 18; TEMP 36.6; O2SAT 99
[2022-01-20 14:25] VITALS: BP 118/71; PULSE 73; RESP 18; O2SAT 99
== END 2022-01-20 14:25 | disposition home or self-care (01) ==
LOC: INF 13:57
PROVIDERS: Visit Provider Internal Medicine Medical Oncology
DX: Z51.11 Encounter for antineoplastic chemotherapy (principal); C50.111 Malignant neoplasm of central portion of right female breast; Z17.1 Estrogen receptor negative status [ER-]; Z79.899 Other long term (current) drug therapy
CPT/HCPCS: 96372; J2505

== ENCOUNTER 2022-02-09 08:08 | Outpatient (CLI) | payer MEDICARE, SELFPAY ==
[2022-02-09] VITALS (12 sets, daily range): BP systolic 118–154; BP diastolic 74–94; PULSE 84–96; RESP 18; TEMP 36.6; O2SAT 96; BMI 35.1
[2022-02-09 08:31] LABS: Basophils # 0.1 K/mm3 (0-0.2); Basophils % 2.1 % (0.1-2.0); Eosinophils # 0.1 K/mm3 (0.0-0.4); Eosinophils % 1.1 % (0.1-12.0); Hematocrit 35.6 % (37.0-47.0); Hemoglobin 12.1 g/dL (12.2-16.2); Lymphocytes # 1.7 K/mm3 (0.7-4.5); Lymphocytes % 30.5 % (10-50); Mean Corpuscular HGB Conc 34.1 g/dL (31.8-35.4); Mean Corpuscular Hemoglobin 30.7 pg (27.0-31.2); Mean Corpuscular Volume 89.9 fl (81-99); Mean Platelet Volume 7.3 fl (7.4-10.4); Monocytes # 0.4 K/mm3 (0.1-1.0); Monocytes % 7.5 % (1.7-9.3); Neutrophils # 3.2 K/mm3 (1.8-7.8); Neutrophils % 58.7 % (37.0-80.0); Platelet Count 360 K/mm3 (142-424); Red Blood Count 3.96 M/mm3 (4.20-5.40); Red Cell Distribution Width 16.6 % (11.5-17.5); White Blood Count 5.4 K/mm3 (4.8-10.8)
[2022-02-09 08:46] LABS: Alanine Aminotransferase 33 U/L (12-78); Albumin Level 3.6 g/dl (3.5-5.0); Albumin/Globulin Ratio 1.3 (1.1-1.8); Alkaline Phosphatase 93 U/L (38-126); Aspartate Amino Transferase 32 U/L (14-36); Blood Urea Nitrogen 15 mg/dl (7-17); Calcium 8.8 mg/dl (8.4-10.2); Carbon Dioxide 24 mmol/L (22.0-30.0); Chloride 108 mmol/L (98-107); Creatinine Clearance Estimated 90 mL/min (50-200); Estimated Glomerular Filt Rate 83 ml/min (>60); GFR (African American) 100 ML/MIN (>60); Globulin 2.8 g/dL (1.3-3.2); Glucose 94 mg/dl (74-100); Sodium 140 mmol/L (136-145); Total Protein,Serum 6.4 g/dl (6.3-8.2)
[2022-02-09 08:56] LABS: Bilirubin,Total < 0.1 mg/dl (0.2-1.3)
[2022-02-09 09:17] LABS: Thyroid Stimulating Hormone 3.26 uIU/mL (0.465-4.68)
[2022-02-10 13:13] LABS: Adrenocorticotropic Hormone 8.4 pg/mL (7.2-63.3)
== END 2022-02-09 13:00 | disposition home or self-care (01) ==
LOC: INF 08:10
PROVIDERS: PCP Internal Medicine Adolescent Medicine; Visit Provider Internal Medicine Medical Oncology
DX: Z51.11 Encounter for antineoplastic chemotherapy (principal); C50.111 Malignant neoplasm of central portion of right female breast; Z17.1 Estrogen receptor negative status [ER-]; Z79.899 Other long term (current) drug therapy
CPT/HCPCS: 80053; 82024; 82533; 84443; 85025; 96413; 96415; 96417; J1642; J2469; J8501; J9000; J9070; J9271

== ENCOUNTER 2022-02-10 13:12 | Outpatient (CLI) | payer MEDICARE, SELFPAY ==
[2022-02-10 13:26] VITALS: BP 122/76; PULSE 106; RESP 20; TEMP 36.7; O2SAT 95
== END 2022-02-10 13:28 | disposition home or self-care (01) ==
LOC: INF 13:12
PROVIDERS: PCP Internal Medicine Adolescent Medicine; Visit Provider Internal Medicine Medical Oncology
DX: Z51.11 Encounter for antineoplastic chemotherapy (principal); C50.111 Malignant neoplasm of central portion of right female breast; Z17.1 Estrogen receptor negative status [ER-]; Z79.899 Other long term (current) drug therapy
CPT/HCPCS: 96372; J2505

== ENCOUNTER → 2022-02-17 11:57 | Outpatient (CLI) | payer MEDICARE, SELFPAY ==
--- NOTE | 2022-02-17 12:02 | XR_ITS ---
FINAL REPORT CLINICAL HISTORY: foot fracture, f/u COMPARISON: 12/27/2021 FINDINGS: RIGHT FOOT Three views of the right foot demonstrate interval healing of the previously seen fracture of the distal right 5th metatarsal shaft. No new osseous abnormality is identified. There is mild osteopenia. There is mild multi joint degenerative disease. The soft tissues are unremarkable. IMPRESSION: Healing fracture of the 5th metatarsal shaft. Reviewed, Interpreted and Dictated by Nelda Lauren MD Transcribed by Susan Severino Authenticated and [facility]
== END ==
PROVIDERS: PCP Internal Medicine Adolescent Medicine; Visit Provider Orthopaedic Surgery
DX: S92.901A Unspecified fracture of right foot, initial encounter for closed fracture (principal)
CPT/HCPCS: 73630

== ENCOUNTER 2022-03-02 08:06 | Outpatient (CLI) | payer MEDICARE, SELFPAY ==
[2022-03-02] VITALS (7 sets, daily range): BP systolic 124–153; BP diastolic 79–92; PULSE 79–88; RESP 18; TEMP 36.3; O2SAT 95; BMI 34.8
[2022-03-02 08:32] LABS: Basophils # 0.1 K/mm3 (0-0.2); Basophils % 2.7 % (0.1-2.0); Eosinophils # 0.1 K/mm3 (0.0-0.4); Eosinophils % 1.8 % (0.1-12.0); Hematocrit 38.2 % (37.0-47.0); Hemoglobin 11.9 g/dL (12.2-16.2); Lymphocytes # 1.3 K/mm3 (0.7-4.5); Lymphocytes % 27.3 % (10-50); Mean Corpuscular HGB Conc 31.2 g/dL (31.8-35.4); Mean Corpuscular Hemoglobin 30.2 pg (27.0-31.2); Mean Corpuscular Volume 96.9 fl (81-99); Mean Platelet Volume 7.7 fl (7.4-10.4); Monocytes # 0.4 K/mm3 (0.1-1.0); Monocytes % 9.3 % (1.7-9.3); Neutrophils # 2.8 K/mm3 (1.8-7.8); Neutrophils % 58.9 % (37.0-80.0); Platelet Count 381 K/mm3 (142-424); Red Blood Count 3.94 M/mm3 (4.20-5.40); Red Cell Distribution Width 17.3 % (11.5-17.5); White Blood Count 4.8 K/mm3 (4.8-10.8)
[2022-03-02 08:35] LABS: Chloride 111 mmol/L (98-107); Potassium 3.6 mmoL/L (3.5-5.1); Sodium 139 mmol/L (136-145)
[2022-03-02 08:38] LABS: Alanine Aminotransferase 33 U/L (12-78); Albumin Level 3.7 g/dl (3.5-5.0); Albumin/Globulin Ratio 1.3 (1.1-1.8); Alkaline Phosphatase 119 U/L (38-126); Anion Gap 6.6 mEq/L (5-15); Aspartate Amino Transferase 36 U/L (14-36); Blood Urea Nitrogen 16 mg/dl (7-17); Calcium 8.7 mg/dl (8.4-10.2); Carbon Dioxide 25 mmol/L (22.0-30.0); Creatinine Clearance Estimated 90 mL/min (50-200); Estimated Glomerular Filt Rate 71 ml/min (>60); GFR (African American) 86 ML/MIN (>60); Globulin 2.8 g/dL (1.3-3.2); Glucose 96 mg/dl (74-100); Total Protein,Serum 6.5 g/dl (6.3-8.2)
[2022-03-02 08:40] LABS: Bilirubin,Total 0.1 mg/dl (0.2-1.3)
[2022-03-02 10:28] LABS: Thyroid Stimulating Hormone 3.32 uIU/mL (0.465-4.68)
== END 2022-03-02 12:30 | disposition home or self-care (01) ==
LOC: INF 08:07
PROVIDERS: PCP Internal Medicine Adolescent Medicine; Visit Provider Internal Medicine Medical Oncology
DX: Z51.11 Encounter for antineoplastic chemotherapy (principal); C50.111 Malignant neoplasm of central portion of right female breast; Z17.1 Estrogen receptor negative status [ER-]; Z79.899 Other long term (current) drug therapy
CPT/HCPCS: 80053; 82024; 82533; 84443; 85025; 96360; 96361; 96413; 96415; 96417; J1642; J2469; J8501; J9000; J9070; J9271

== ENCOUNTER 2022-03-03 12:59 | Outpatient (CLI) | payer MEDICARE, SELFPAY ==
[2022-03-03 13:05] VITALS: BP 115/80; PULSE 98; RESP 18; TEMP 36.6; O2SAT 97
== END 2022-03-03 13:24 | disposition home or self-care (01) ==
LOC: INF 13:01
PROVIDERS: PCP Internal Medicine Adolescent Medicine; Visit Provider Internal Medicine Medical Oncology
DX: C50.111 Malignant neoplasm of central portion of right female breast (principal); Z51.11 Encounter for antineoplastic chemotherapy; Z17.1 Estrogen receptor negative status [ER-]; Z79.899 Other long term (current) drug therapy
CPT/HCPCS: 96372; J2505

== ENCOUNTER 2022-07-06 09:24 | Outpatient (CLI) | payer MEDICARE, MEDICAID, SELFPAY ==
[2022-07-06 09:31] VITALS: BMI 33.0
[2022-07-06 10:10] LABS: Basophils # 0.1 K/mm3 (0-0.2); Basophils % 1.3 % (0.1-2.0); Eosinophils # 0.1 K/mm3 (0.0-0.4); Eosinophils % 3.2 % (0.1-12.0); Hematocrit 40.6 % (37.0-47.0); Hemoglobin 13.3 g/dL (12.2-16.2); Lymphocytes # 1.4 K/mm3 (0.7-4.5); Lymphocytes % 32.5 % (10-50); Mean Corpuscular HGB Conc 32.8 g/dL (31.8-35.4); Mean Corpuscular Hemoglobin 28.8 pg (27.0-31.2); Mean Corpuscular Volume 87.9 fl (81-99); Mean Platelet Volume 7.7 fl (7.4-10.4); Monocytes # 0.2 K/mm3 (0.1-1.0); Monocytes % 5.6 % (1.7-9.3); Neutrophils # 2.5 K/mm3 (1.8-7.8); Neutrophils % 57.4 % (37.0-80.0); Platelet Count 248 K/mm3 (142-424); Red Blood Count 4.62 M/mm3 (4.20-5.40); Red Cell Distribution Width 14.7 % (11.5-17.5); White Blood Count 4.4 K/mm3 (4.8-10.8)
[2022-07-06 10:28] LABS: Chloride 109 mmol/L (98-107); Potassium 3.4 mmoL/L (3.5-5.1); Sodium 141 mmol/L (136-145)
[2022-07-06 10:31] LABS: Alanine Aminotransferase 30 U/L (12-78); Albumin Level 3.7 g/dl (3.5-5.0); Albumin/Globulin Ratio 1.5 (1.1-1.8); Alkaline Phosphatase 111 U/L (38-126); Anion Gap 13.4 mEq/L (5-15); Aspartate Amino Transferase 35 U/L (14-36); Bilirubin,Total 0.2 mg/dl (0.2-1.3); Blood Urea Nitrogen 13 mg/dl (7-17); Carbon Dioxide 22 mmol/L (22.0-30.0); Creatinine Clearance Estimated 84 mL/min (50-200); Estimated Glomerular Filt Rate 83 ml/min (>60); GFR (African American) 100 ML/MIN (>60); Globulin 2.5 g/dL (1.3-3.2); Total Protein,Serum 6.2 g/dl (6.3-8.2)
[2022-07-06 10:32] LABS: Glucose 82 mg/dl (74-100)
[2022-07-06 10:52] LABS: Thyroid Stimulating Hormone 4.25 uIU/mL (0.465-4.68)
[2022-07-06 11:08] VITALS: BP 139/89; PULSE 76; RESP 18; TEMP 36.4; O2SAT 96
[2022-07-06 11:30] VITALS: BP 149/83; PULSE 66; RESP 18
[2022-07-06 11:44] VITALS: BP 153/87; PULSE 70; RESP 18
[2022-07-06 11:53] VITALS: BP 142/88; PULSE 66; RESP 18
[2022-07-07 13:15] LABS: Adrenocorticotropic Hormone 24.9 pg/mL (7.2-63.3)
== END 2022-07-06 11:53 | disposition home or self-care (01) ==
LOC: INF 09:25
PROVIDERS: PCP Internal Medicine Adolescent Medicine; Visit Provider Internal Medicine Medical Oncology
DX: Z51.11 Encounter for antineoplastic chemotherapy (principal); C50.911 Malignant neoplasm of unspecified site of right female breast; Z17.1 Estrogen receptor negative status [ER-]; Z79.899 Other long term (current) drug therapy
CPT/HCPCS: 80053; 82024; 82533; 84443; 85025; 96413; J1642; J9271

== ENCOUNTER 2022-07-07 15:45 | Emergency (ER) | payer MEDICARE, MEDICAID, SELFPAY ==
[2022-07-07 15:47] VITALS: BP 107/70; PULSE 81; RESP 16; TEMP 36.9; O2SAT 96; BMI 33.2
[2022-07-07 16:30] VITALS: BP 108/65; PULSE 77; RESP 18; O2SAT 96
[2022-07-07 17:00] VITALS: BP 115/77; PULSE 72; RESP 18; O2SAT 94
[2022-07-07 17:07] LABS: Coronavirus 19, PCR Not Detected (NotDetected); Influenza A, PCR Not Detected (NotDetected); Influenza B, PCR Not Detected (NotDetected)
[2022-07-07 17:30] VITALS: BP 124/80; PULSE 66; RESP 18; O2SAT 98
--- NOTE | 2022-07-07 17:51 | HMH.EDGENADL ---
Discharge Plan Disposition Patient Disposition: Home, Self-Care Condition: Good Chief Complaint: Upper Respiratory Infection Prescriptions Prescriptions: No Action zolpidem [Ambien] 5 mg tablet 5 mg PO QHS PRN (Reason: insomnia) Qty: 30 1RF diazepam 5 mg tablet 5 mg PO DAILY omeprazole 20 mg capsule,delayed release(DR/EC) 20 mg PO DAILY amitriptyline 50 mg tablet 50 mg PO DAILY nitrofurantoin monohyd/m-cryst 100 mg capsule 100 mg PO ONCE ondansetron HCl 8 mg tablet 8 mg PO Q8H PRN (Reason: Nausea) Label Comments: TAKE ONE TABLET BY MOUTH EVERY 8 HOURS NEEDED FOR NAUSEA AND VOMITING hydrocodone-acetaminophen 5-325 mg tablet 1 tab PO Q6H PRN (Reason: cancer pain) Qty: 20 0RF cholecalciferol (vitamin D3) 10 MCG tablet 400 unit PO WEEKLY buspirone 10 MG tablet 10 mg PO BID cariprazine 3 MG capsule 3 mg PO DAILY lemborexant 5 MG tablet 5 mg PO HS Referrals Follow up/Referrals: Johnny Gomez MD [Primary Care Provider] - See instructions Activity Restrictions/Add. Instructions Additional Instructions/Restrictions: At this time was felt you are safe to be discharged home. If new or worsening symptoms please do not hesitate to return to the emergency department. Please follow-up with your family doctor in 1 week for continued evaluation. Clinical Impressions Clinical Impression: Acute viral syndrome Discharge ED Provider: Alfredo Meza General Adult HPI General Chief complaint: Upper Respiratory Infection Stated complaint: Cancer Pt, Chills,fever,Weakness,Body Aches Time Seen by Provider: 07/07/22 17:45 Mode of Arrival: Wheelchair Limitations: No Limitations Description of Symptoms (Recalled from ER Triage Doc. by RN): pt c/o flu like symptoms that started last night. Pt c/o body aches, feeling tired, headache, and running a fever last night. PT has no other complaints History of Present Illness HPI narrative: Patient is a 72-year-old female with past medical history of breast cancer status post mastectomy with axial lymph node dissection status postchemotherapy status postradiation currently on immunotherapy who presents emergency department for evaluation of multiple symptoms including headache, body aches, fever, weakness. Onset was acute, occurring since last night when patient was status post immunotherapy. Patient has had altered blood counts before in the setting of chemotherapy and immunotherapy. States symptoms are improving. No other acute complaints at this time. Related Data Home Medications Medication Instructions Recorded Confirmed cholecalciferol (vitamin D3) 10 400 unit PO WEEKLY Supplement 09/13/20 06/29/22 mcg (400 unit) tablet buspirone 10 mg tablet 10 mg PO BID Depression 09/29/21 06/29/22 cariprazine 3 mg capsule 3 mg PO DAILY MOOD 09/29/21 06/29/22 lemborexant 5 mg tablet 5 mg PO HS MOOD 09/29/21 06/29/22 diazepam 5 mg tablet 5 mg PO DAILY anxiety 11/24/21 06/29/22 omeprazole 20 mg capsule,delayed 20 mg PO DAILY GERD 12/08/21 06/29/22 release nitrofurantoin 100 mg PO ONCE infection 12/15/21 06/29/22 monohydrate/macrocrystals 100 mg capsule amitriptyline 50 mg tablet 50 mg PO DAILY Depression 01/05/22 06/29/22 ondansetron HCl 8 mg tablet 8 mg PO Q8H PRN Nausea 01/19/22 06/29/22 Previous Rx's Medication Instructions Recorded zolpidem 5 mg tablet (Ambien) 5 mg PO QHS PRN insomnia #30 tabs 01/14/21 hydrocodone 5 mg-acetaminophen 325 1 tab PO Q6H PRN cancer pain #20 10/13/21 mg tablet tabs Allergies Allergy/AdvReac Type Severity Reaction Status Date / Time Corticosteroids Allergy Unknown Unknown Verified 06/29/22 13:46 (Glucocorticoids) allergy reaction Penicillins Allergy Unknown Unknown Verified 06/29/22 13:46 allergy reaction Sulfa (Sulfonamide Allergy Unknown Unknown Verified 06/29/22 13:46 Antibiotics) allergy reaction [facility] Disclaimer:
--- NOTE | 2022-07-07 18:17 | PC.NURSE ---
pt up to restroom and assisted back to bed. Pt updated on POC. No new needs at this time and pt was agreeable with POC. Called lab and asked for someone to come draw labs.
--- NOTE | 2022-07-07 18:27 | PC.NURSE ---
LAB HERE FOR BLOOD DRAW
[2022-07-07 19:08] LABS: Basophils % 1.1 % (0.1-2.0); Hemoglobin 12.8 g/dL (12.2-16.2); Lymphocytes # 0.8 K/mm3 (0.7-4.5); Mean Corpuscular HGB Conc 34.5 g/dL (31.8-35.4); Mean Corpuscular Hemoglobin 29.4 pg (27.0-31.2); Mean Corpuscular Volume 85.4 fl (81-99); Mean Platelet Volume 7.6 fl (7.4-10.4); Monocytes # 0.2 K/mm3 (0.1-1.0); Monocytes % 6.4 % (1.7-9.3); Neutrophils # 1.8 K/mm3 (1.8-7.8); Neutrophils % 64.5 % (37.0-80.0); Platelet Count 168 K/mm3 (142-424); Red Blood Count 4.34 M/mm3 (4.20-5.40); Red Cell Distribution Width 14.5 % (11.5-17.5); White Blood Count 2.8 K/mm3 (4.8-10.8)
[2022-07-07 19:16] LABS: Chloride 105 mmol/L (98-107); Potassium 4.1 mmoL/L (3.5-5.1); Sodium 136 mmol/L (136-145)
[2022-07-07 19:18] LABS: Blood Urea Nitrogen 11 mg/dl (7-17); Creatinine Clearance Estimated 84 mL/min (50-200); Estimated Glomerular Filt Rate 71 ml/min (>60); GFR (African American) 86 ML/MIN (>60)
[2022-07-07 19:19] LABS: Alanine Aminotransferase 28 U/L (12-78); Albumin Level 3.5 g/dl (3.5-5.0); Albumin/Globulin Ratio 1.3 (1.1-1.8); Alkaline Phosphatase 85 U/L (38-126); Anion Gap 8.1 mEq/L (5-15); Aspartate Amino Transferase 37 U/L (14-36); Bilirubin,Total 0.6 mg/dl (0.2-1.3); Carbon Dioxide 27 mmol/L (22.0-30.0); Globulin 2.6 g/dL (1.3-3.2); Glucose 86 mg/dl (74-100); Magnesium 1.9 mg/dl (1.6-2.3); Total Protein,Serum 6.1 g/dl (6.3-8.2)
[2022-07-07 20:00] VITALS: BP 125/78; PULSE 85; RESP 20; TEMP 36.8; O2SAT 97
== END 2022-07-07 20:10 | disposition home or self-care (01) ==
PROVIDERS: Emergency Provider Emergency Medicine; PCP Internal Medicine Adolescent Medicine
DX: R50.9 Fever, unspecified (principal); R07.9 Chest pain, unspecified; R53.1 Weakness; M79.10 Myalgia, unspecified site; R51.9 Headache, unspecified; D72.819 Decreased white blood cell count, unspecified; Z20.822 Contact with and (suspected) exposure to COVID-19; K21.9 Gastro-esophageal reflux disease without esophagitis; M19.90 Unspecified osteoarthritis, unspecified site; G47.00 Insomnia, unspecified; F32.A Depression, unspecified; F41.9 Anxiety disorder, unspecified; Z88.0 Allergy status to penicillin; Z88.2 Allergy status to sulfonamides; Z88.8 Allergy status to other drugs, medicaments and biological substances; Z79.899 Other long term (current) drug therapy
CPT/HCPCS: 36415; 80053; 83735; 85025; 99283; C9803; U0003; U0005

== ENCOUNTER → 2022-07-20 12:25 | Outpatient (CLI) | payer MEDICARE, MEDICAID, SELFPAY ==
[2022-07-20 12:37] LABS: Microscopic, Urine URINE MICROSCOPIC (MICROSCOPIC)
[2022-07-20 12:57] LABS: Basophils # 0.1 K/mm3 (0-0.2); Basophils % 1.5 % (0.1-2.0); Eosinophils # 0.1 K/mm3 (0.0-0.4); Eosinophils % 2.4 % (0.1-12.0); Hematocrit 41.7 % (37.0-47.0); Lymphocytes # 1.5 K/mm3 (0.7-4.5); Lymphocytes % 32.4 % (10-50); Mean Corpuscular HGB Conc 33.5 g/dL (31.8-35.4); Mean Corpuscular Hemoglobin 29.5 pg (27.0-31.2); Mean Platelet Volume 7.6 fl (7.4-10.4); Monocytes # 0.3 K/mm3 (0.1-1.0); Monocytes % 7.1 % (1.7-9.3); Neutrophils # 2.7 K/mm3 (1.8-7.8); Neutrophils % 56.6 % (37.0-80.0); Platelet Count 311 K/mm3 (142-424); Red Blood Count 4.74 M/mm3 (4.20-5.40); Red Cell Distribution Width 15.1 % (11.5-17.5); White Blood Count 4.7 K/mm3 (4.8-10.8)
[2022-07-20 12:58] LABS: Appearance,Urine CLEAR (Clear); Bilirubin,Urine Negative (Negative); Blood, Urine Negative (Negative); Color,Urine YELLOW (Yellow); Glucose,Urine (UA) Negative (Negative); Ketones,Urine Negative (Negative); Leukocyte Esterase,Urine Negative (Negative); Nitrate,Urine Negative (Negative); PH,Urine 5.5 (5.0-8.5); Protein,Urine Negative (Negative); Specific Gravity, Urine 1.025 (1.005-1.030); Urobilinogen,Urine 0.2 EU/dl (0.2)
[2022-07-20 13:48] LABS: WBC,Urine Occasional #/hpf (0-3)
[2022-07-20 13:51] LABS: Chloride 109 mmol/L (98-107); Potassium 3.6 mmoL/L (3.5-5.1); Sodium 140 mmol/L (136-145)
[2022-07-20 13:54] LABS: Blood Urea Nitrogen 16 mg/dl (7-17); Calcium 8.7 mg/dl (8.4-10.2); Estimated Glomerular Filt Rate 83 ml/min (>60); GFR (African American) 100 ML/MIN (>60); Glucose 87 mg/dl (74-100)
[2022-07-20 15:27] LABS: Anion Gap 12.6 mEq/L (5-15); Carbon Dioxide 22 mmol/L (22.0-30.0)
== END ==
PROVIDERS: PCP Internal Medicine Adolescent Medicine; Visit Provider Internal Medicine Adolescent Medicine
DX: R30.0 Dysuria (principal); C50.911 Malignant neoplasm of unspecified site of right female breast
CPT/HCPCS: 36415; 80048; 81001; 85025

== ENCOUNTER 2022-10-05 10:22 | Outpatient (CLI) | payer MEDICARE, MEDICAID, SELFPAY ==
[2022-10-05 10:30] VITALS: BMI 33.0
[2022-10-05 10:45] LABS: Alanine Aminotransferase 29 U/L (12-78); Albumin Level 4.1 g/dl (3.5-5.0); Albumin/Globulin Ratio 1.4 (1.1-1.8); Alkaline Phosphatase 134 U/L (38-126); Anion Gap 13.8 mEq/L (5-15); Aspartate Amino Transferase 33 U/L (14-36); Basophils # 0.2 K/mm3 (0-0.2); Basophils % 3.8 % (0.1-2.0); Bilirubin,Total 0.5 mg/dl (0.2-1.3); Blood Urea Nitrogen 14 mg/dl (7-17); Calcium 8.3 mg/dl (8.4-10.2); Carbon Dioxide 22 mmol/L (22.0-30.0); Chloride 107 mmol/L (98-107); Creatinine Clearance Estimated 84 mL/min (50-200); Eosinophils # 0.7 K/mm3 (0.0-0.4); Eosinophils % 10.9 % (0.1-12.0); Estimated Glomerular Filt Rate 62 ml/min (>60); GFR (African American) 75 ML/MIN (>60); Glucose 101 mg/dl (74-100); Hematocrit 45.8 % (37.0-47.0); Hemoglobin 14.7 g/dL (12.2-16.2); Lymphocytes # 2.2 K/mm3 (0.7-4.5); Lymphocytes % 34.4 % (10-50); Mean Corpuscular HGB Conc 32.1 g/dL (31.8-35.4); Mean Corpuscular Volume 90.4 fl (81-99); Mean Platelet Volume 7.1 fl (7.4-10.4); Monocytes # 0.3 K/mm3 (0.1-1.0); Monocytes % 4.8 % (1.7-9.3); Neutrophils # 2.9 K/mm3 (1.8-7.8); Neutrophils % 46.1 % (37.0-80.0); Platelet Count 289 K/mm3 (142-424); Potassium 3.8 mmoL/L (3.5-5.1); Red Blood Count 5.06 M/mm3 (4.20-5.40); Red Cell Distribution Width 14.7 % (11.5-17.5); Sodium 139 mmol/L (136-145); Total Protein,Serum 7.1 g/dl (6.3-8.2); White Blood Count 6.4 K/mm3 (4.8-10.8)
== END 2022-10-05 10:30 | disposition home or self-care (01) ==
PROVIDERS: PCP Internal Medicine Adolescent Medicine; Visit Provider Internal Medicine Medical Oncology
DX: C50.911 Malignant neoplasm of unspecified site of right female breast (principal); Z45.2 Encounter for adjustment and management of vascular access device
CPT/HCPCS: 36591; 80053; 85025; J1642

== ENCOUNTER → 2022-10-11 13:29 | Outpatient (CLI) | payer MEDICARE, MEDICAID, SELFPAY ==
--- NOTE | 2022-10-11 13:32 | CA_ITS ---
APPROVED REPORT EXAM: Comprehensive 2D, Doppler, and color-flow Echocardiogram [employer]ession[employer]: Shawna Vazquez RVT Ht: 5 ft 9 in Wt: 219lbs BSA: 2.15 BP: 108/68 mmHg Indications: TACHYCARDIA,HYPOTENSION,HX BREAST CA WITH CHEMO AND RADIATION TDS-PT'S CHEST IS VERY TENDER TO TOUCH,LIMITED WINDOWS 2D Dimensions IVSd 1.33 cm F: 0.6-1.0 LVEF (Visual) 57.80 % PWd 0.83 cm F: 0.6 - 1.0 LA Volume 28.30 mL LVDd 3.63 cm F: 3.9 - 5.3 LA Volume Index 13.16 mL/m2 (M/F) 16-34 LVDs 2.55 cm F: 2.2 - 3.5 LVOT 2.34 cm (M/F) 1.5-2.5 M-Mode Dimensions LA Diam 2.26 cm (1.9-4.0) Ao Diam 4.05 cm (2.0-3.7) LV Diastology E Decel Time 207.00 (160-240 msec) E/A Ratio 0.6 MED E' 8.50 (< 7 cm/sec) E'/MED E' Ratio 6.25 (>14) LAT E' 9.00 (<10 cm/sec) E/LAT E' Ratio 5.90 (>14) Aortic Valve AO Peak GR. 4.10 mmHg Mitral Valve MV E Max José Miguel. 53.00 (40-130 cm/s) MV A Velocity 87.00 (40-130 cm/s) E/A Ratio 0.61 MV Decel. Time 207.00 (160-240 ms) MV PHT 61.00 ms Pulmonary Valve PV Peak Velocity 65.00 (50-150 cm/s) Left Ventricle Technically difficult study because of the patient factors and poor acoustic windows. Left atrium is normal size left ventricle is normal size, estimated ejection fraction 55% with no regional wall motion abnormality, Doppler evidence of impaired LV relaxation seen. Right Ventricle Right atrium and right ventricular normal size and contractility. Aortic Valve Aortic valve is minimally thickened and calcified without aortic stenosis aortic insufficiency. Mitral Valve Mitral valve is grossly normal, there is trace mitral regurgitation. Tricuspid Valve Tricuspid valve grossly normal, there is trace tricuspid regurgitation, tricuspid regurgitation jet velocity is inadequate for calculation of the right ventricular systolic pressure. Pulmonic Valve Pulmonic valve is poorly visualized. Great Vessels Aortic root is normal size. Inferior vena cava normal size with normal inspiratory collapse. Pericardium No significant pericardial effusion noted. Conclusion 1. Normal left ventricular size, estimated ejection fraction 55% with no regional wall motion abnormality, Doppler evidence of impaired LV relaxation seen. 2. Trace mitral and tricuspid regurgitation. 3. No significant pericardial effusion noted. 4. Inferior vena cava is normal size with normal inspiratory collapse. Electronically signed by : Iván Nayak MD 10/12/2022 06:18:19
== END ==
PROVIDERS: PCP Internal Medicine Adolescent Medicine; Visit Provider Internal Medicine Medical Oncology
DX: R42 Dizziness and giddiness (principal); R00.0 Tachycardia, unspecified; R06.09 Other forms of dyspnea
CPT/HCPCS: 93306

== ENCOUNTER 2022-10-18 17:00 | Outpatient (RCR) | payer MEDICARE, MEDICAID, SELFPAY ==
--- NOTE | 2022-08-29 15:58 | HMH.PTOPEV ---
PT Outpatient Evaluation Rehab PT Outpatient Evaluation Start: 08/29/22 15:42 Freq: Status: Active Protocol: Document 08/29/22 15:42 JUSTA (Rec: 08/29/22 15:58 JUSTA [id number]) E-signed By Srini Barnes, PT Outpatient Therapy Subjective History Subjective History Pt reports generalized weakness and deconditioning secondary to breast cancer treatment since . Pt reports in she had completed 90% of her cancer treatment which included extensive chemo and radiation. Pt reports intermittent episodes of orthostatic hypotension, dizziness, and borderline hypoglycemia since cx. treatment. Pt also reports depression, anxiety, and PTSD from very difficult divorce. Pt also reports mid and low back pain, with intermittent episodes of radicular s/s around chest. Chief Complaint Pain,Stiff,Paresthesia, Weakness,Decreased Coordination Symptom Type Ache,Sharp,Dull Symptoms Relieved By Rest/Positioning Symptoms Aggravated By Standing,Bending/Stooping, Physical Activity,Walking Prior Functional Limitations Lifting,Housework,Standing, Walking,Stairs,Balance Current Functional Limitations Lifting,Housework,Sleeping, Standing,Walking,Stairs, Balance Symptom Description Constant but Variable Level of pain today (0-10) 2 Pain scale - at its best (0-10) 1 Pain scale - at its worst (0-10) 6 Hip/Knee Eval Gait Observation General Gait Pattern Observation Wide Based Gait,Ataxic Gait, Shuffling Step Assistive Device Assistive Devices None / NA MMT bilateral Hip Flexion Strength Grade 4- Good- Hip Abduction Strength Grade 3+ Fair+ Hip Adduction Strength Grade 4- Good- Hip Extension Strength Grade 3+ Fair+ Hip External Rotation Strength Grade 4- Good- Hip Internal Rotation Strength Grade 4- Good- Knee Extension Strength Grade 4 Good Knee Flexion Strength Grade 4 Good ROM Hip Flexion w/Knee Extended Passive 0-40 Range of Motion (degrees) Hip External Rotation Passive Range of 0-30 Motion (degrees)
--- NOTE | 2022-09-29 16:54 | HMH.RHREAS ---
Rehab Reassessment Rehab OP Re-assessment Start: 09/29/22 16:44 Freq: Status: Active Protocol: Document 09/29/22 16:44 JUSTA (Rec: 09/29/22 16:54 JAMILRASHMI [id number]) E-signed By Srini Barnes, PT Rehab Re-assessment Subjective Subjective Pt reports significant improvements in LE strength as well as endurance. Pt reports a 50% improvement in endurance since I evlavonne, and feels that the improvements in LE strength have proved beneficial for balance as well . Pt reports 0/10 LBP at rest and 6-7/10 LBP on VAS w/ prolonged standing. Objective Objective Notes MMT: B/L HIP FLX 4/5, B/L HIP ABD 4-4+/5, B/L HIP ADD 4+/5, B/L KNEE EXT 5/5, B/L KNEE FLX 4+/5, R DF 4+/5, L DF 4/5 TINETTI: 22 GAIT: WFL ON LEVEL TERRAIN W/O ANY A.D. (WAS PREVIOUSLY USING RW AT I.[facility]) Assessment Progress Assessment Progressing as Expected Assessment Notes IMPROVED STRENGTH, TINETTI/ BALANCE SCORE, GAIT Patient goals met STG'S 12/29 LTG'S 09/29 Goals Not Met STG'S 09/28, LTG'S 01/29 Plan Plan Pt to continue w/skilled P.T. to make further improvements in bilateral LE strength, endurance, balance and gait to aloow for optimal function Frequency of Therapy 1-2x/wk Duration of therapy 6-8wks Time and Billing Re-Eval Time 12 Re-Eval Billing Units 1 PHYSICIAN CERTIFICATION: I certify the specified therapy services for Flora Alexandre are required, authorized, and reviewed every 30 days.
== END 2022-10-18 17:05 | disposition home or self-care (01) ==
LOC: PT 17:00
PROVIDERS: PCP Internal Medicine Adolescent Medicine; Visit Provider Internal Medicine Medical Oncology
DX: R53.1 Weakness (principal); T45.1X5A Adverse effect of antineoplastic and immunosuppressive drugs, initial encounter
CPT/HCPCS: 97010; 97110; 97163; 97164; 97530

== ENCOUNTER → 2022-10-23 09:19 | Outpatient (CLI) | payer MEDICARE, MEDICAID, SELFPAY ==
--- NOTE | 2022-10-23 09:24 | CT_ITS ---
FINAL REPORT TECHNIQUE: Routine axial images were obtained from the lung apices to below the diaphragm following IV contrast administration. Individualized dose reduction techniques using automated exposure control or adjustment of the mA and/or kV according to the patient size were employed. CLINICAL HISTORY: Right breast cancer, staging FINDINGS: There is a left upper anterior chest port in the SVC. Multiple surgical clips are noted in the right breast and axilla. There is hazy stranding in the right breast. The heart size is normal. There is no pleural or pericardial effusion. There is mild scarring at the lung bases. A small density is seen along the margin of the right major fissure measuring 6 mm. This is well seen on image 34 of series 4. IMPRESSION: Postoperative changes in the right breast and axilla. Density along the periphery of the right major fissure is probably due to scarring. Reviewed, Interpreted and Dictated by Lan Medeiros MD Transcribed by Kaley Drew Authenticated and [facility]
--- NOTE | 2022-10-23 09:24 | CT_ITS ---
FINAL REPORT TECHNIQUE: Postcontrast axial images through the abdomen and pelvis were performed. This study was performed with techniques to keep radiation doses as low as reasonably achievable, (ALARA). Individualized dose reduction techniques using automated exposure control or adjustment of mA and/or kV according to the patient's size were employed. CLINICAL HISTORY: Right breast cancer, staging FINDINGS: Abdomen: There are multiple benign-appearing cysts throughout the liver measuring up to 2.5 cm in greatest dimension. The gallbladder is present. The spleen is unremarkable. The adrenals are normal. The pancreas is unremarkable. There is a left renal cyst measuring up to 8.4 cm. The right kidney is unremarkable. The aorta is normal in caliber. No free fluid or adenopathy is identified. No findings for mechanical bowel obstruction are identified. There is a small fat containing umbilical hernia. Pelvis: The appendix is not identified. The uterus is not identified. The urinary bladder is unremarkable. No free fluid, free air, abscess or adenopathy is identified. IMPRESSION: Benign appearing cysts in the liver and left kidney. Reviewed, Interpreted and Dictated by Lan Medeiros MD Transcribed by Kaley Drew Authenticated and [facility]
== END ==
PROVIDERS: PCP Internal Medicine Adolescent Medicine; Visit Provider Internal Medicine Medical Oncology
DX: C50.911 Malignant neoplasm of unspecified site of right female breast (principal)
CPT/HCPCS: 71260; 74177; Q9967

== ENCOUNTER → 2022-11-07 11:42 | Outpatient (CLI) | payer MEDICARE, MEDICAID, SELFPAY | PROVIDERS: PCP Internal Medicine Adolescent Medicine; Visit Provider Nurse Practitioner Family | DX: R06.00 Dyspnea, unspecified (principal); R07.9 Chest pain, unspecified; R94.31 Abnormal electrocardiogram [ECG] [EKG] | CPT/HCPCS: 78452; 93017; A9502; J2785 ==

== ENCOUNTER 2022-11-10 15:08 | Outpatient (CLI) | payer MEDICARE, MEDICAID, SELFPAY | END 2022-11-10 15:30 | disposition home or self-care (01) | LOC: INF 15:09 | PROVIDERS: PCP Internal Medicine Adolescent Medicine; Visit Provider Internal Medicine Medical Oncology | DX: C50.911 Malignant neoplasm of unspecified site of right female breast (principal); Z17.1 Estrogen receptor negative status [ER-]; Z45.2 Encounter for adjustment and management of vascular access device | CPT/HCPCS: 96523; J1642 ==

== ENCOUNTER → 2023-02-22 13:48 | Outpatient (CLI) | payer MEDICARE, MEDICAID, SELFPAY ==
[2023-02-22 13:56] VITALS: BMI 31.8
--- NOTE | 2023-02-22 14:11 | PC.NURSE ---
1404- cbc and cmp drawn via butterfly needle in left forearm. needle removed and coban applied.
[2023-02-22 14:20] LABS: Basophils % 0.6 % (0.1-2.0); Eosinophils # 0.1 K/mm3 (0.0-0.4); Eosinophils % 2.5 % (0.1-12.0); Hematocrit 43.2 % (37.0-47.0); Hemoglobin 13.9 g/dL (12.2-16.2); Lymphocytes # 1.5 K/mm3 (0.7-4.5); Lymphocytes % 30.3 % (10-50); Mean Corpuscular HGB Conc 32.1 g/dL (31.8-35.4); Mean Corpuscular Hemoglobin 29.1 pg (27.0-31.2); Mean Corpuscular Volume 90.5 fl (81-99); Mean Platelet Volume 7.7 fl (7.4-10.4); Monocytes # 0.2 K/mm3 (0.1-1.0); Monocytes % 4.4 % (1.7-9.3); Neutrophils # 3.2 K/mm3 (1.8-7.8); Neutrophils % 62.1 % (37.0-80.0); Platelet Count 251 K/mm3 (142-424); Red Blood Count 4.77 M/mm3 (4.20-5.40); Red Cell Distribution Width 14.1 % (11.5-17.5); White Blood Count 5.1 K/mm3 (4.8-10.8)
[2023-02-22 14:30] LABS: Alanine Aminotransferase 29 U/L (12-78); Albumin/Globulin Ratio 1.3 (1.1-1.8); Alkaline Phosphatase 108 U/L (38-126); Anion Gap 11.1 mEq/L (5-15); Aspartate Amino Transferase 33 U/L (14-36); Bilirubin,Total 0.6 mg/dl (0.2-1.3); Blood Urea Nitrogen 12 mg/dl (7-17); Calcium 8.7 mg/dl (8.4-10.2); Carbon Dioxide 23 mmol/L (22.0-30.0); Chloride 112 mmol/L (98-107); Creatinine Clearance Estimated 81 mL/min (50-200); Estimated Glomerular Filt Rate 83 ml/min (>60); GFR (African American) 100 ML/MIN (>60); Globulin 3.1 g/dL (1.3-3.2); Glucose 92 mg/dl (74-100); Potassium 4.1 mmoL/L (3.5-5.1); Sodium 142 mmol/L (136-145); Total Protein,Serum 7.1 g/dl (6.3-8.2)
== END ==
PROVIDERS: PCP Internal Medicine Adolescent Medicine; Visit Provider Internal Medicine Medical Oncology
DX: C50.911 Malignant neoplasm of unspecified site of right female breast (principal); Z17.1 Estrogen receptor negative status [ER-]; Z45.2 Encounter for adjustment and management of vascular access device
CPT/HCPCS: 36415; 80053; 85025

== ENCOUNTER → 2023-03-22 10:33 | Outpatient (POV) | payer MEDICARE, MEDICAID, SELFPAY | PROVIDERS: Visit Provider Specialist/Technologist | DX: Z00.00 Encounter for general adult medical examination without abnormal findings (principal) ==

== ENCOUNTER → 2023-06-08 13:44 | Outpatient (CLI) | payer MEDICARE, MEDICAID, SELFPAY ==
--- NOTE | 2023-06-08 13:48 | MM_ITS ---
PROCEDURE INFORMATION: Exam: MG Bilateral Screening 3D Mammography Exam date and time: 06/08/2023 1:38 PM Age: 73 years old Clinical indication: Screening examination. History of right breast cancer TECHNIQUE: Imaging protocol: Bilateral Screening tomosynthesis and 2D mammography including computer-aided detection (CAD) when performed. COMPARISON: 1. MG MM DIG MAMM BI DX W/CAD 07/27/2021 3:41 PM 2. MG MM DIG SCREENING MAMM BI W/CAD 07/07/2020 3:36 PM FINDINGS: MAMMOGRAPHY: Breast composition: There are scattered areas of fibroglandular density. Mass: The previously noted mass has been removed. Architectural distortion: Post operative architectural distortion in the right upper breast due to interval lumpectomy for carcinoma. Calcifications: No suspicious calcifications. Asymmetric density: None. Skin thickening: None. Axillary adenopathy: None. IMPRESSION: No mammographic evidence of malignancy. Annual screening is recommended unless otherwise clinically indicated. ASSESSMENT: BI-RADS Category 2: Benign
== END ==
PROVIDERS: PCP Internal Medicine Adolescent Medicine; Visit Provider Internal Medicine Medical Oncology
DX: Z12.31 Encounter for screening mammogram for malignant neoplasm of breast (principal); C50.919 Malignant neoplasm of unspecified site of unspecified female breast
CPT/HCPCS: 77063; 77067

== ENCOUNTER 2023-07-19 11:19 | Emergency (ER) | payer MEDICARE, MEDICAID, SELFPAY ==
[2023-07-19 11:40] VITALS: BP 117/75; PULSE 123; RESP 19; TEMP 37.3; O2SAT 97; BMI 35.2
--- NOTE | 2023-07-19 11:57 | ED_ITS ---
Discharge Plan Disposition Patient Disposition: Home, Self-Care Condition: Good Prescriptions Prescriptions: No Action omeprazole 20 mg capsule,delayed release(DR/EC) 20 mg PO DAILY citalopram 40 mg tablet 40 mg PO DAILY gabapentin [Neurontin] 300 mg capsule 300 mg PO BID Qty: 60 2RF cholecalciferol (vitamin D3) 10 MCG tablet 400 unit PO WEEKLY eszopiclone 2 mg tablet 2 mg PO DAILY Patient Comments: TAKE ONE TABLET BY MOUTH EVERY DAY AT BEDTIME Referrals Follow up/Referrals: Johnny Gomez MD [Primary Care Provider] - See instructions Activity Restrictions/Add. Instructions Additional Instructions/Restrictions: *Monitor Temp, Over the counter Motrin or Tylenol as directed/as needed Tylenol every 4 hours and Motrin every 6 hours (as long as your family doctor has told you that you can take it) for fever or pain. and straight to ER if unable to lower temp less than 101.0 after medication given *Warm salt water gargles may help to soothe the throat *Throat Lozenges? *Warm fluids like tea with honey may help to soothe the throat? *Sleep elevated *Humidifier/Vaporizer Follow up IMMEDIATELY for new or worsening symptoms or no Noticeable improv ement over the next 48-72 hours. 911 for difficulty breathing or swallowing Clinical Impressions Clinical Impression: Sinusitis Qualifiers: Sinusitis location: unspecified location Chronicity: unspecified Qualified Code(s): J32.9 - Chronic sinusitis, unspecified Instructions Patient Instructions: Sinusitis, DI for Sinusitis Discharge ED Provider: Azul Brown [facility] General Stated complaint: sore throat, runny nose, headche Mode of Arrival: Ambulatory Source of Information: Patient Limitations: No Limitations Time Seen by Provider: 07/19/23 11:59 Description of Symptoms (Recalled from Triage Doc. by RN): PATIENT C/O COLD SYMPTOMS X 7 DAYS HEENT Symptoms (Recalled from RN notes): Yes Resp Symptoms (Recalled from RN notes): Yes Skin Symptoms (Recalled from RN notes): No MS Symptoms (Recalled from RN notes): No Functional Status (Recalled from RN notes): WNL History of Present Illness Provider Complaint: Patient states that she thought she had a cold States that symptoms started over a week ago and she has been having sinus pain and pressure, runny nose at times, scratchy throat and pressure behind her eyes States that she thought it would get better but hasnt so today she came in to get checked Related Data Home Medications Medication Instructions Recorded Confirmed cholecalciferol (vitamin D3) 10 400 unit PO WEEKLY Supplement 09/13/20 07/19/23 mcg (400 unit) tablet omeprazole 20 mg capsule,delayed 20 mg PO DAILY GERD 12/08/21 07/19/23 release citalopram 40 mg tablet 40 mg PO DAILY 07/27/22 07/19/23 eszopiclone 2 mg tablet 2 mg PO DAILY 07/19/23 07/19/23 Previous Rx's Medication Instructions Recorded gabapentin 300 mg capsule 300 mg PO BID #60 caps 05/29/23 (Neurontin) Allergies Allergy/AdvReac Type Severity Reaction Status Date / Time Corticosteroids Allergy Unknown Unknown Verified 03/22/23 10:54 (Glucocorticoids) allergy reaction Penicillins Allergy Unknown Unknown Verified 03/22/23 10:54 allergy reaction Sulfa (Sulfonamide Allergy Unknown Unknown Verified 03/22/23 10:54 Antibiotics) allergy reaction Worker's Comp Is this a Worker's Comp case?: No [facility] Disclaimer: The information contained in this section may have been updated after the patient was seen, as this information can be updated by other users. Medical History (Updated 07/19/23 @ 12:21 by Azul Brown APRN) Abnormal electrocardiogram [ECG] [EKG] Anxiety and depression Arthritis Breast cancer Chest pain Chest pain Dyspnea GERD (gastroesophageal reflux disease) History of chemotherapy Insomnia Sensorineural hearing loss Tympanosclerosis of left ear UTI (urinary tract infection) Surgical History H/O total hysterectomy History of lumpectomy Family History Other No significant family history Social History Smoking Status: Never smoker alcohol intake: current substance use type: denies use current occupational status: unemployed and student Travel in the last 8 weeks: None household members: family housing: house number of children: 0 caffeine: Yes ROS Obtained: Yes All systems reviewed & no additional complaints except as documented and Yes Systems reviewed as appropriate & no additional complaints except as documented Constitutional Constitutional: Reports system reviewed and no additional complaints, except as documented and Reports as per HPI ENT Ears, Nose, Mouth, and Throat: Reports system reviewed and no additional compla ints, except as documented, Reports as per HPI, Reports sinus pain, Reports sinus pressure and Reports sore throat Cardiovascular Cardiovascular: Reports system reviewed and no additional complaints, except as documented and Reports as per HPI Respiratory Respiratory: Reports system reviewed and no additional complaints, except as documented and Reports as per HPI Gastrointestinal Gastrointestingal: Reports system reviewed and no additional complaints, except as documented and as per HPI Physical Exam General General appearance: alert and in no apparent distress ENT ENT exam: Present mucous membranes moist Expanded ENT Exam Nose exam: Present sinus tenderness Throat exam: Present other (Pharyngeal erythema noted with PND) Chest Chest inspection: Present normal inspection and symmetric chest wall rise Respiratory Respiratory exam: Present normal lung sounds bilaterally; Absent respiratory distress or wheezes Cardiovascular Cardiovascular exam: Present regular rate, normal rhythm and normal heart sounds Abdominal Exam Abdominal exam: Present soft and normal bowel sounds; Absent distention or tenderness Neurological Exam Neurological exam: Present alert, oriented X3 and normal gait Medical Decision Making Willem Inquiry Pt receiving controlled substance: No Willem was queried for this patient: No Vital Signs: 07/19/23 11:40 Temperature 99.1 F Temperature Source Oral Pulse Rate [Left Brachial] 123 H Respiratory Rate 19 Blood Pressure [Left Arm] 117/75 Blood Pressure Mean [Left Arm] 89 Blood Pressure Source [Left Arm] Automatic Cuff Blood Pressure Position [Left Arm] Sitting 02 Sat by Pulse Oximetry 97 Oxygen Delivery Method Room Air Lab Data Lab results reviewed: Yes I reviewed the patient's lab results. Medical Decision Narrative: Patient is allergic to amoxil but has taken Cefdnir in the past without complications or reactions
[2023-07-19 12:19] LABS: UTC Influenza A Antigen Negative (Negative); UTC Influenza B Antigen Negative (Negative)
[2023-07-19 12:32] VITALS: BP 117/75; PULSE 123; RESP 19; TEMP 37.3; O2SAT 97
== END 2023-07-19 12:35 | disposition home or self-care (01) ==
PROVIDERS: Emergency Provider Nurse Practitioner; PCP Internal Medicine Adolescent Medicine
DX: J01.90 Acute sinusitis, unspecified (principal); R51.9 Headache, unspecified; R09.81 Nasal congestion; R07.0 Pain in throat; K21.9 Gastro-esophageal reflux disease without esophagitis
CPT/HCPCS: 87804; 99204; 99212; G0463

== ENCOUNTER 2023-08-23 14:22 | Outpatient (CLI) | payer MEDICARE, MEDICAID, SELFPAY ==
--- NOTE | 2023-08-23 14:36 | XR_ITS ---
FINAL REPORT CLINICAL HISTORY: MIDLINE THORACIC BACK PAIN pt states that pain radiates anteriorly into ribs/chest COMPARISON: None FINDINGS: AP, lateral, and swimmer''s views of the thoracic spine were obtained. There is no prior exam for comparison. There is no acute fracture. There is mild dextroscoliosis of the thoracic spine. Vertebral body height is preserved. Paraspinal soft tissues are within normal limits. IMPRESSION: No acute osseous abnormality of the thoracic spine. Mild dextroscoliosis. Reviewed, Interpreted and Dictated by Naveed Caballero MD Transcribed by Lou Patterson Authenticated and [facility]
== END 2023-08-23 23:59 ==
LOC: RAD 14:24
PROVIDERS: PCP Internal Medicine Adolescent Medicine; Visit Provider Internal Medicine Adolescent Medicine
DX: M54.6 Pain in thoracic spine (principal)
CPT/HCPCS: 72072

== ENCOUNTER → 2023-08-24 09:59 | Outpatient (POV) | payer MEDICARE, MEDICAID, SELFPAY ==
[2023-08-24 10:29] VITALS: BP 96/62; PULSE 104; RESP 20; O2SAT 96; BMI 40.1
--- NOTE | 2023-08-24 10:52 | A.OFFVIS_ITS ---
HPI Data of Consult Patient: new to practice Consult date: 08/24/23 Requesting Physician: Jessie Chin APRN Primary Care Provider: Johnny Gomez MD Consult Narrative Reason for consult: Thoracic back pain History of present illness: Ms. Alexandre is a 73 year old female who comes our clinic today with report of 30- year thoracic back pain. Patient describes the pain as constant, dull, aching. Pain intensifies with standing and/or ambulation. Pain decreases with sitting in a comfortable recliner. Patient also reports of bilateral radicular symptoms around the thoracic cage. She rates her pain 7/10. Patient is taking NSAIDs. Also, Tylenol with codeine at times however she reports this does not help. Russ johnson is allergic to cortisone. According to the patient she has tried and failed some injections that were attempted on her back years ago. Due to the pain to the injection she was not able to complete the procedure. CC: Jessie Chin APRN [facility] Disclaimer: The information contained in this section may have been updated after the patient was seen, as this information can be updated by other users. Medical History (Updated 08/24/23 @ 10:57 by Flaquito Broderick CRNA) Abnormal electrocardiogram [ECG] [EKG] Anxiety and depression Arthritis Breast cancer Chest pain Chest pain Dyspnea GERD (gastroesophageal reflux disease) History of chemotherapy Insomnia Sensorineural hearing loss Tympanosclerosis of left ear UTI (urinary tract infection) Surgical History H/O total hysterectomy History of lumpectomy Family History Other No significant family history Social History Smoking Status: Never smoker alcohol intake: current substance use type: denies use current occupational status: other Travel in the last 8 weeks: None household members: family housing: house number of children: 0 caffeine: Yes Meds Home Medications and Allergies Home Medications Medication Instructions Recorded Confirmed Type cholecalciferol (vitamin D3) 10 400 unit PO WEEKLY Supplement 09/13/20 07/19/23 History mcg (400 unit) tablet omeprazole 20 mg capsule,delayed 20 mg PO DAILY GERD 12/08/21 07/19/23 History release citalopram 40 mg tablet 40 mg PO DAILY 07/27/22 07/19/23 History gabapentin 300 mg capsule 300 mg PO BID #60 caps 05/29/23 07/19/23 Rx (Neurontin) cefdinir 300 mg capsule 300 mg PO BID #20 caps 07/19/23 Rx eszopiclone 2 mg tablet 2 mg PO DAILY 07/19/23 07/19/23 History methocarbamol 500 mg tablet 500 mg PO BID #60 tabs 08/24/23 Rx New Prescriptions to Start Prescriptions: methocarbamol Flaquito Broderick Allergies Allergy/AdvReac Type Severity Reaction Status Date / Time Corticosteroids Allergy Unknown Unknown Verified 03/22/23 10:54 (Glucocorticoids) allergy reaction Penicillins Allergy Unknown Unknown Verified 03/22/23 10:54 allergy reaction Sulfa (Sulfonamide Allergy Unknown Unknown Verified 03/22/23 10:54 Antibiotics) allergy reaction Objective Vital signs: Pulse Resp BP Pulse Ox O2 Del Method 104 H 20 96/62 L 96 Room Air 08/24/23 10:29 08/24/23 10:29 08/24/23 10:29 08/24/23 10:29 08/24/23 10:29 Assessment and Plan *Assessment and plan (1) Thoracic back pain: Status: Acute Category: Medical Code(s): M54.6 - Pain in thoracic spine Plan Discussed treatment options with the patient. Will send patient for 6 weeks physical therapy for the thoracic spine. I will send in methocarbamol 500 mg 1 p.o. twice daily to the clinic pharmacy #60. 1 refill. She will return to see us in 2 months for follow-up after completing physical therapy. Also, we discussed briefly potential for thoracic MRI if needed in the future.
== END | disposition home or self-care (01) ==
PROVIDERS: PCP Internal Medicine Adolescent Medicine; Visit Provider Nurse Practitioner Family
DX: M54.6 Pain in thoracic spine (principal)
CPT/HCPCS: 99202; G0463

== ENCOUNTER 2024-02-13 16:00 | Outpatient (RCR) | payer MEDICARE, MEDICAID, SELFPAY ==
--- NOTE | 2024-01-09 11:44 | HMH.PTOPEV ---
PT Outpatient Evaluation Rehab PT Outpatient Evaluation Start: 01/09/24 09:06 Freq: Status: Active Protocol: Document 01/09/24 09:06 ROGELIO (Rec: 01/09/24 11:43 ROGELIO [id number]) E-signed By Jessie Dahl, PT Outpatient Therapy Subjective History Subjective History Pt is a 73 y/o female who reports chronic thoracic back pain since she was in her 20s. Pt reports gradual worsening of pain overtime, denies known trauma or injury. Pt reports pain is aggravated by sitting, standing or walking for any amount of time and improves with lying flat or in a reclined position. Pt reports pain often feels that it radiates through her to her chest/ribs below her bra strap region. Pt denies numbness/ tingling, neck pain or difficulty/pain with breathing . Pt had a thoracic spine xray on 08/23/23 with impression of No acute osseous abnormality of the thoracic spine. Mild dextroscoliosis. Medical History: Anxiety/ depression, GERD, dyspnea, insomnia, arthritis New diagnosis of cancer in past No: Breast cancer in 2021 months? treated via lumpectomy- currently in remission Chief Complaint Pain,Stiff Symptom Type Ache,Sharp,Dull Symptoms Relieved By Rest/Positioning Symptoms Aggravated By Standing,Physical Activity, Walking Current Functional Limitations Reaching,Lifting,Housework, Standing,Sitting,Walking Symptom Description Constant but Variable Level of pain today (0-10) 7 Pain scale - at its best (0-10) 1 Pain scale - at its worst (0-10) 9 Cervical Eval Palpation Cervical Muscles R Upper Trapezius,L Upper Trapezius,R Thoracic Paraspinals,L Thoracic Paraspinals Cervical/Thoracic Palpation Findings Tenderness Flexibility Deficits Upper Trapezius Muscle Length (R) Moderate Tightness,(L) Moderate Tightness Levaetor Scapulae Muscle Length (R) Moderate Tightness,(L) Moderate Tightness Pectoralis Major Muscle Length (R) Moderate Tightness,(L) Moderate Tightness Pectoralis Minor Muscle Length (R) Moderate Tightness,(L) Moderate Tightness AROM Cervical Spine Extension Active Range of 45 Motion (degrees) Cervical Spine Flexion Active Range of 45 Motion (degrees) Cervical Spine Right Lateral Flexion 25 Active Range of Motion (degrees) Cervical Spine Left Lateral Flexion 40 Active Range of Motion (degrees) Cervical Spine Right Rotation Active 65 Range of Motion (degrees) Cervical Spine Left Rotation Active 70 Range of Motion (degrees) Shoulder/Elbow Eval Shoulder Objective Measurements Posture Shoulder Posture Sitting Position (L) Rounded,(R) Rounded,(L) Forward,(R) Forward Shoulder Posture Standing Position (L) Rounded,(R) Rounded,(L) Forward,(R) Forward Shoulder ROM Bilateral full ROM shoulder exam standard bilateral Shoulder MMT Lower Trapezius Strength Grade 3+ Fair+ Middle Trapezius Strength Grade 4- Good- Rhomboids Strength Grade 4- Good- Upper Trapezius/Levator Scapulae 4 Good Shoulder Abduction Strength Grade 5 Normal Shoulder Extension Strength Grade 5 Normal Shoulder Flexion Strength Grade 5 Normal Elbow Objective Measurements Lumbopelvic Eval Posture Thoracic Spine Posture Standing Position Increased Kyphosis Lumbar Spine Posture Standing Position Flattened Palapation tenderness bilateral thoracic spinal tenderness Yes paraspinal tenderness Yes: R>L Lumbar/Sacral Palpation Findings Tenderness Range of Motion Lumbar Spine Active Flexion Range of 70 Motion (degrees) Lumbar Spine Active Extension Range of 20 Motion (degrees) Left Lumbar Spine Lateral Flexion Active 10 Range of Motion (degrees) Right Lumbar Spine Lateral Flexion 10 Active Range of Motion (degrees) Oswestry Index Section 1 Pain Intensity The pain is severe and does not vary much Section 2 Personal Care (Washing,Dresing) increase the pain and I find it necessary to change my way of doing it Section 3 Lifting lifting heavy weights off the floor, but I can manage light to medium Section 4 Walking I cannot walk at all without increasing pain Section 5 Sitting I can sit in my favorite chair for as long as I like Section 6 Standing I avoid standing because it increases the pain immediately Section 7 Sleeping Because of my pain, my normal night's sleep is less than 4 hours Section 8 Social Life I hardly have any social life because of pain Section 9 Traveling Pain restricts me to short necessary journeys under 30 minutes Section 10 Changing Degreee of Pain My pain is rapidly getting worse Score and Risk Level Oswestry Sc 40 Oswestry Risk Level Completely Disabled Outpatient Therapy Assessment Impairments Problems/Impairmments Palpation Tenderness,Impaired Range of Motion,Impaired Strength,Impaired Walking, Impaired Standing,Impaired Sitting,Impaired Lifting, Impaired Shower/Bathing, Impaired Household Care, Impaired Bending,Subjective C/ O Pain,Impaired Self Care/Self Management Prognosis Rehab Potential Good Comment Barrier to progress includes chronic pain Clinical Impression Consistent with Diagnosis Yes Short Term Goals Number of Weeks 3 Improve Ability to Shower/Bathe Self Yes: report ability to stand to shower with pain 7/10 or less Improve Oswestry Score Yes Decrease Subjective C/O Pain Yes: Improve pain at worst to 7/10 to improve overall QOL Improve Self Care/Self Management Yes Patient to be Ind w/ HEP Yes Retirement Goals Number of Weeks 6 Increase Range of Motion Yes: Improve cervical AROM LF to WNL Increase Strength Yes: Improve scapular strength to 4-4+/5 grossly to assist with posture/function Increase Ability to Walk Yes Increase Ability to Stand Yes: 5-10' with pain 5/10 or less to assist wtih ADLs Improve Oswestry Score Yes: Improve score to 30-35 to improve overall QOL Decrease Subjective C/O Pain Yes: Improve pain at worst to 5/10 to improve overall QOL Outpatient Therapy Plan of Care Treatment Plan May Include Therapeutic Exercise Including Home Yes Exercise Program Manual Therapy Techniques Yes Neuromuscular Re-education Yes Therapeutic Activities to Return to Yes Previous Functional/Work Level ADL/Self Care Education Yes Mechanical Traction Yes Dry Needling Yes Thermal Modalities Yes Electrical Stimulation Yes Ultrasound/Phonophoresis Yes Iontophoresis Yes Massage Yes Group Therapy for Medicare Yes Eval/Re-Eval Yes Aquatic Therapy Yes Frequency Times per week 2 Duration Number of Weeks 4-6 Addendums This patient is a candidate for social No or vocational rehab? Patient/Guardian verbally acknowledges Yes understanding of treatment program and consents to further treatment? Patient/Guardian verbally acknowledges Yes understanding of diagnosis, prognosis and goals for treatment? Eval Complexity PT Charges 03092 - Moderate Complexity PHYSICIAN CERTIFICATION: I certify the specified therapy services for Flora Alexandre are required, authorized, and reviewed every 30 days.
== END 2024-02-13 23:59 | disposition home or self-care (01) ==
LOC: PT 16:00
PROVIDERS: Visit Provider Nurse Practitioner Family
DX: M54.6 Pain in thoracic spine (principal)
CPT/HCPCS: 97010; 97014; 97110; 97163; G0283

== ENCOUNTER 2024-07-08 13:43 | Outpatient (CLI) | payer MEDICARE, MEDICAID, SELFPAY ==
--- NOTE | 2024-07-08 13:51 | CA_ITS ---
APPROVED REPORT EXAM: Comprehensive 2D, Doppler, and color-flow Echocardiogram [employer]: Shawna Vazquez RVT Ht: 5 ft 9 in Wt: 200lbs BSA: 2.07 BP: 140/90 mmHg Indications: SOA,FATIGUE,HX BREAST CA WITH RADIATION-CHEST IS VERY TENDER IN PLACES 2D Dimensions IVSd 1.11 cm F: 0.6-1.0 LVEF (Visual) 178.80 % PWd 1.11 cm F: 0.6 - 1.0 LA Volume 33.60 mL LVDd 1.71 cm F: 3.9 - 5.3 LA Volume Index 16.23 mL/m2 (M/F) 16-34 LVDs 2.56 cm F: 2.2 - 3.5 EF AP4 57.80 % GL Strain -21.0 % M-Mode Dimensions RVDd 2.79 cm (0.9-2.6) LA Diam 2.32 cm (1.9-4.0) LVDd 2.79 cm (3.5-5.7) LVDs 2.04 cm (3.5-5.7) IVSd 0.91 cm (0.6-1.1) PWd 0.91 cm (0.6-1.1) EF (Teich) 54.30% FS 26.90% EDV (Teich) 29.30 mL TAPSE 2.20 (<1.7) ESV (Teich) 13.40 mL LV Diastology E Decel Time 250 (160-240 msec) E/A Ratio 0.5 Aortic Valve AO Peak GR. 3.00 mmHg Mitral Valve MV E Max José Miguel. 42.0 (40-130 cm/s) MV A Velocity 85.0 (40-130 cm/s) E/A Ratio 0.50 MV PHT 73.0 ms Pulmonary Valve PV Peak Velocity 53.0 (50-150 cm/s) Left Ventricle The left ventricle is normal size. The left ventricular systolic function is normal. The left ventricular ejection fraction is within the normal range. There is increased LV wall thickness. There is normal LV segmental wall motion. The left ventricular diastolic function is normal. LVEF is 55%. Right Ventricle The right ventricle is normal size. The right ventricular systolic function is normal. Atria The left atrium size is normal. The right atrium size is normal. There is no Doppler evidence of interatrial shunt. Aortic Valve The aortic valve is mildly thickened. There is no aortic valvular stenosis. No aortic regurgitation is present. Mitral Valve The mitral valve is normal in structure. No evidence of mitral valve stenosis. Trace mitral regurgitation. Tricuspid Valve Tricuspid valve is grossly normal in structure and function. Trace tricuspid regurgitation. There is insufficient TR jet to estimate RVSP. Pulmonic Valve The pulmonary valve is normal in structure. Trace pulmonic regurgitation. Great Vessels The aortic root is borderline dilated. IVC is normal in size and collapses >50% with inspiration. Pericardium There is no pericardial effusion. Conclusion Normal biventricular systolic function. No significant valvular stenosis or regurgitation. The aortic root is borderline dilated. Electronically signed by : Venita Ko MD 07/20/2024 11:31:20
== END 2024-07-08 23:59 | disposition home or self-care (01) ==
LOC: RT 13:45
PROVIDERS: PCP Internal Medicine Adolescent Medicine; Visit Provider Nurse Practitioner Family
DX: I77.810 Thoracic aortic ectasia (principal); R53.83 Other fatigue; R06.00 Dyspnea, unspecified; Z85.3 Personal history of malignant neoplasm of breast; Z92.3 Personal history of irradiation
CPT/HCPCS: 93306

== ENCOUNTER 2024-07-14 11:49 | Outpatient (CLI) | payer MEDICARE, MEDICAID, SELFPAY ==
[2024-07-14 12:05] VITALS: BMI 29.5
[2024-07-14 12:16] VITALS: BP 131/85; PULSE 78; RESP 18; O2SAT 98
[2024-07-14] MEDS: METOPROLOL TARTRATE 50MG TABLET PO (12:24)
[2024-07-14] MEDS: IVABRADINE HCL 7.5MG TABLET PO (12:24)
[2024-07-14 12:42] LABS: Blood Urea Nitrogen 17 mg/dl (7-17); Calcium 9.1 mg/dl (8.4-10.2); Carbon Dioxide 24 mmol/L (22.0-30.0); Chloride 107 mmol/L (98-107); Creatinine Clearance Estimated 73 mL/min (50-200); Estimated Glomerular Filt Rate 71 ml/min (>60); GFR (African American) 85 ML/MIN (>60); Glucose 78 mg/dl (74-100); Sodium 138 mmol/L (136-145)
[2024-07-14 12:48] LABS: Anion Gap 10.6 mEq/L (5-15); Potassium 3.6 mmoL/L (3.5-5.1)
[2024-07-14 13:30] VITALS: BP 136/106; PULSE 59; RESP 18; O2SAT 98
[2024-07-14] MEDS: NITROGLYCERIN 0.4MG SL TABLET SL (13:30)
[2024-07-14 13:35] VITALS: BP 148/95; PULSE 56; RESP 18; O2SAT 96
[2024-07-14 13:40] VITALS: BP 118/75; PULSE 56; RESP 20; O2SAT 96
[2024-07-14] MEDS: IOPAMIDOL-370 (76%);100ML BOTTLE 85 ML IV (13:44)
[2024-07-14] MEDS: 0.9 % SODIUM CHLORIDE 50 ML VIAL IV (13:44)
[2024-07-14] MEDS: SODIUM CHLORIDE 0.9% 10ML SYR (RAD ONLY) 10 ML IV (13:44)
== END 2024-07-14 13:48 | disposition home or self-care (01) ==
PROVIDERS: PCP Internal Medicine Adolescent Medicine; Visit Provider Nurse Practitioner Family
DX: R53.83 Other fatigue (principal); R06.00 Dyspnea, unspecified; R94.31 Abnormal electrocardiogram [ECG] [EKG]; R07.89 Other chest pain; R94.30 Abnormal result of cardiovascular function study, unspecified
CPT/HCPCS: 75574; 80048; Q9967

== ENCOUNTER 2024-08-20 13:30 | Outpatient (CLI) | payer MEDICARE, MEDICAID, SELFPAY ==
--- NOTE | 2024-08-20 13:31 | CT_ITS ---
FINAL REPORT TECHNIQUE: The patient was injected with IV contrast. Axial images were obtained through the chest in a PE protocol. 3-D reconstruction images were also performed. Individualized dose reduction techniques using automated exposure control or adjustment of the MA and/or KV according to patient's size were employed. CLINICAL HISTORY: dilated aortic root COMPARISON: CT of the chest 10/23/2022 FINDINGS: Mediastinal vasculature is adequately opacified. No pulmonary artery filling defects are identified to suggest PE. There is no aortic dissection. The aortic root measures 3.7 cm in diameter, within normal limits. There is no axillary adenopathy. There is no hilar or mediastinal adenopathy. Scarring is present in the lung bases. The heart size is normal. There is no pericardial or pleural effusion. Limited images of the upper abdomen demonstrate benign-appearing cysts in the liver measuring up to 2.4 cm in size, stable. There is a partially visualized cyst in the left kidney measuring 7.2 cm in size, also stable. In the paraspinal region at the T10-11 and T11-12 levels there are fluid signal foci in the neural foramina and extending into the paraspinal soft tissues, most compatible with Tarlov cysts, stable. The previously seen right upper lobe nodule on the prior exam is no longer visualized. IMPRESSION: No pulmonary embolus or dissection. The aortic root is within normal limits of size, measuring 3.7 cm. Partially visualized left renal and hepatic cysts are stable when compared to the prior exam as described. The previously noted right upper lobe nodule is no longer visualized. Reviewed, Interpreted and Dictated by Lan Medeiros MD Transcribed by Lou Patterson Authenticated and [facility]
[2024-08-20 14:00] LABS: Chloride 107 mmol/L (98-107); Sodium 138 mmol/L (136-145)
[2024-08-20 14:03] LABS: Blood Urea Nitrogen 17 mg/dl (7-17); Calcium 8.8 mg/dl (8.4-10.2); Carbon Dioxide 24 mmol/L (22.0-30.0); Estimated Glomerular Filt Rate 71 ml/min (>60); GFR (African American) 85 ML/MIN (>60); Glucose 90 mg/dl (74-100)
[2024-08-20] MEDS: IOPAMIDOL-370 (76%);100ML BOTTLE 80 ML IV (14:42)
[2024-08-20] MEDS: SODIUM CHLORIDE 0.9% 10ML SYR (RAD ONLY) 10 ML IV (14:42)
[2024-08-20] MEDS: 0.9 % SODIUM CHLORIDE 50 ML VIAL IV (14:42)
== END 2024-08-20 23:59 | disposition home or self-care (01) ==
LOC: RAD 13:31
PROVIDERS: PCP Internal Medicine Adolescent Medicine; Visit Provider Nurse Practitioner Family
DX: R94.31 Abnormal electrocardiogram [ECG] [EKG] (principal); I77.810 Thoracic aortic ectasia; R53.83 Other fatigue; R06.09 Other forms of dyspnea; R07.89 Other chest pain
CPT/HCPCS: 36415; 71275; 80048; Q9967

== ENCOUNTER 2024-08-26 12:43 | Outpatient (CLI) | payer MEDICARE, MEDICAID, SELFPAY ==
--- NOTE | 2024-08-26 12:44 | MM_ITS ---
PROCEDURE INFORMATION: Exam: MG Bilateral Screening 3D Mammography Exam date and time: 08/26/2024 1:12 PM Age: 74 years old Clinical indication: Screening exam TECHNIQUE: Imaging protocol: Bilateral Screening tomosynthesis and 2D mammography including computer-aided detection (CAD) when performed. COMPARISON: 1. MG MM DIG SCREENING MAMM BI W/CAD 06/08/2023 1:38 PM 2. MG MM DIG MAMM BI DX W/CAD 07/27/2021 3:41 PM FINDINGS: MAMMOGRAPHY: Breast composition: There are scattered areas of fibroglandular density. Mass: No suspicious masses. Architectural distortion: Postsurgical changes redemonstrated right breast. Calcifications: No suspicious calcifications. Asymmetric density: None. Skin thickening: None. Axillary adenopathy: None. IMPRESSION: No mammographic evidence of malignancy. Annual screening is recommended unless otherwise clinically indicated. ASSESSMENT: BI-RADS Category 2: Benign.
== END 2024-08-26 23:59 | disposition home or self-care (01) ==
LOC: RAD 12:44
PROVIDERS: PCP Internal Medicine Adolescent Medicine; Visit Provider Internal Medicine Medical Oncology
DX: Z12.31 Encounter for screening mammogram for malignant neoplasm of breast (principal); Z85.3 Personal history of malignant neoplasm of breast
CPT/HCPCS: 77063; 77067